=== PATIENT | female | born 1930 | race Caucasian/White ===

== ENCOUNTER 2018-09-23 01:20 | Inpatient (IN) ==
[2018-09-23] MEDS ORDERED: Ondansetron 4 MG/2 ML VIAL IVP ONE (01:40)
[2018-09-23] MEDS ORDERED: 0.9 % Sodium Chloride 500 ML IVC ONE ×2 (01:46→03:13)
--- NOTE | 2018-09-23 01:47 | Emergency Department Note ---
Disposition Clinical Impression: Calculus of kidney, Pyelonephritis, Non-ST elevation TX (NSTEMI) Abdominal pain Qualifiers: Abdominal location: right lower quadrant Qualified Code(s): R10.31 - Right lower quadrant pain Disposition: Admitted As Inpatient Condition: Fair Time of Disposition: 04:48 Abdominal Pain HPI - General Chief Complaint: ED Abdominal Pain Stated Complaint: Lower abdominal pain Time Seen by Provider: 09/23/18 01:22 Source: patient, EMS Nursing Notes Reviewed: Yes Vital Signs Reviewed: Yes - History of Present Illness HPI Narrative: Patient is an 87-year-old female presenting to [facility] ED for a recent history of right lower abdominal pain that began on Saturday. Patient states that the pain is severe in nature and has progressively been getting worse since onset. Patient states that she has a his tory of small bowel obstruction with bowel resection. Patient admits to fever/chills, headaches, shortness of breath, abdominal pain/nausea/vomiting. Patient denies chest pain, dysuria, hematuria/ hematochezia. Pain Scale: 0 - Related Data Allergies Allergy/AdvReac Type Severity Reaction Status Date / Time No Known Allergies Allergy Verified 09/23/18 02:00 Review of Systems: As Per HPI Abdominal Pain PMH - Past Medical History Medical history: Reports: renal disease Female Surgical History: Reports: other - Social History Smoking status: Unknown if ever smoked Alcohol use: Reports: none Drug use: Reports: none Physical Exam Constitutional: Patient appears ill, is tachypneic, conversationally dyspneic, actively dry heaving, appears to be somewhat confused, pale in appearance. Cardiovascular: Rhythm is irregularly irregular Respiratory: Clear to auscultation bilaterally but tachypneic, shallow depth of respirations Abdomen: Abdomen is distended, firm, tender to palpation in the right lower quadrant Extremities: Radial pulse is intact and strong - General Limitations: no limitations General appearance: alert, anxious, in distress - Head Head exam: atraumatic, normocephalic - Eye Eye exam: Present: normal appearance, EOMI, other (Left pupil is eliptical in shape, otherwise ERRL ). Absent: scleral icterus - Neck Neck exam: Present: normal inspection, trachea midline - Chest Chest inspection: Present: normal inspection, symmetric chest wall rise - Respiratory Respiratory exam: Present: normal lung sounds bilaterally - Cardiovascular Cardiovascular exam: Present: irregular rhythm. Absent: JVD - Abdominal Exam Abdominal exam: Present: soft, tenderness, distention, normal bowel sounds. Absent: guarding, rebound, rigidity Abdominal tenderness: Present: diffuse - Neurological Exam Neurological exam: Present: alert - Psychiatric Psychiatric exam: Present: normal affect, normal mood, anxious - Skin Skin exam: Present: warm, dry, intact Course Course Narrative: Sepsis workup including lactate, and CT of the abdomen and pelvis will be performed to assess for potential underlying pathology. Vital Signs Temperature 102.6 F H 09/23/18 01:24 Pulse Rate 114 09/23/18 01:24 Respiratory Rate 26 09/23/18 01:24 Blood Pressure 156/75 09/23/18 01:24 O2 Sat by Pulse Oximetry 96 09/23/18 01:24 Temperature 102.6 F H 09/23/18 01:24 Pulse Rate 126 09/23/18 04:38 Respiratory Rate 22 09/23/18 04:38 Blood Pressure 163/78 09/23/18 04:38 O2 Sat by Pulse Oximetry 97 09/23/18 04:38 Oxygen Delivery Oxygen Delivery Nasal Cannula Abdominal Pain - MDM Narrative Medical decision making narrative: Patient found to have a 6 mm obstructing stone in the right ureter, concern for pyelonephritis given her elevated white blood cell count. Patient started on fluids and given 2 g of Rocephin for antibiotic coverage for sepsis. Spoke with Dr. Arvizu from urology who recommended admission, Dr. Arvizu will follow the patient while in hospital. Patient admitted to hospitalist medicine service with Dr. Fontaine accepting admission. - Lab Data Lab results reviewed: Yes I reviewed the patient's lab results. Result diagrams: 09/23/18 01:40 09/23/18 01:40 Lab Results 09/23/18 09/23/18 09/23/18 Range/Units 01:40 01:40 01:40 WBC 17.3 H (4.3-11.1) K/mcL RBC 3.62 L (3.82-4.97) M/mcL Hgb 9.6 L (11.5-15.4) g/dL Hct 29.4 L (35.3-44.9) % MCV 81.2 L (83.0-100.0) fL MCH 26.5 L (28.0-33.3) pg MCHC 32.7 (31.6-35.5) g/dL RDW 13.4 (11.5-14.5) % Plt Count 291 (140-400) K/mcL MPV 10.5 (9.4-12.4) fL Immature Gran % 0.6 (0-4) % Seg Neutrophils % 94.3 % Lymphocytes % 2.5 % Monocytes % 2.5 % Eosinophils % 0.0 % Basophils % 0.1 % Neutrophils # 16.3 H (1.6-8.9) K/mcL Lymphocytes # 0.4 L (0.6-4.6) K/mcL Monocytes # 0.4 (0.0-1.3) K/mcL Eosinophils # 0.0 (0.0-0.6) K/mcL Basophils # 0.0 (0.0-0.2) K/mcL PT (9.4-12.1) Seconds INR Sodium 131 L (136-145) mEq/L Potassium 3.8 (3.5-5.1) mEq/L Chloride 92 L (98-107) mEq/L Carbon Dioxide 24 (23-29) mEq/L BUN 40 H (8-23) mg/dL Creatinine 2.29 H (0.60-1.20) mg/dL Est GFR ( Amer) 24 L (> 60) Est GFR (Non-Af Amer) 20 L (> 60) BUN/Creatinine Ratio 17 (6-26) Glucose 161 H (70-105) mg/dL Calculated Osmolality 285 (280-300) Lactic Acid 1.7 (0.5-2.2) mmol/L Calcium 9.0 (8.6-10.3) mg/dL Total Bilirubin 0.7 (0.3-1.0) mg/dL Direct Bilirubin 0.2 (0.0-0.2) mg/dL Indirect Bilirubin 0.5 (0.0-1.2) mg/dL AST 21 (13-39) Units/L ALT 12 (7-52) Units/L Alkaline Phosphatase 110 H (34-104) Units/L Troponin I 0.90 H* (< 0.04) ng/mL Serum Total Protein 6.6 (6.4-8.9) g/dL Albumin 3.4 L (3.5-5.7) g/dL Globulin 3.2 (2.4-3.5) g/dL Albumin/Globulin Ratio 1.1 (1.1-2.2) Lipase 7 L (11-82) Units/L Urine Color (Yellow) Urine Clarity (Clear) Urine pH (5.0-8.0) pH Units Ur Specific [place] (1.010-1.025) Urine Protein (Neg-Trace) mg/dL Urine Glucose (UA) (Normal) mg/dL Urine Ketones (Negative) mg/dL Urine Blood (Negative) Urine Nitrite (Negative) Urine Bilirubin (Negative) Urine Urobilinogen (Normal) mg/dL Ur Leukocyte Esterase (Negative) Urine Microscopic RBC (0-3) per hpf Urine Microscopic WBC (0-3) per hpf Ur Squamous Epith Cells (None-Few) per lpf Ur Renal Epithelial Cell (None-Few) per hpf Urine Bacteria (None-Few) per hpf Hyaline Casts (None-Few) per lpf Granular Casts (None Seen) per lpf Urine Mucus (Few) Urine Yeast (None Seen) per hpf Ur Culture Indicated? (NO) 09/23/18 09/23/18 Range/Units 02:11 03:21 WBC (4.3-11.1) K/mcL RBC (3.82-4.97) M/mcL Hgb (11.5-15.4) g/dL Hct (35.3-44.9) % MCV (83.0-100.0) fL MCH (28.0-33.3) pg MCHC (31.6-35.5) g/dL RDW (11.5-14.5) % Plt Count (140-400) K/mcL MPV (9.4-12.4) fL Immature Gran % (0-4) % Seg Neutrophils % % Lymphocytes % % Monocytes % % Eosinophils % % Basophils % % Neutrophils # (1.6-8.9) K/mcL Lymphocytes # (0.6-4.6) K/mcL Monocytes # (0.0-1.3) K/mcL Eosinophils # (0.0-0.6) K/mcL Basophils # (0.0-0.2) K/mcL PT 13.0 H (9.4-12.1) Seconds INR 1.2 Sodium (136-145) mEq/L Potassium (3.5-5.1) mEq/L Chloride (98-107) mEq/L Carbon Dioxide (23-29) mEq/L BUN (8-23) mg/dL Creatinine (0.60-1.20) mg/dL Est GFR ( Amer) (> 60) Est GFR (Non-Af Amer) (> 60) BUN/Creatinine Ratio (6-26) Glucose (70-105) mg/dL Calculated Osmolality (280-300) Lactic Acid (0.5-2.2) mmol/L Calcium (8.6-10.3) mg/dL Total Bilirubin (0.3-1.0) mg/dL Direct Bilirubin (0.0-0.2) mg/dL Indirect Bilirubin (0.0-1.2) mg/dL AST (13-39) Units/L ALT (7-52) Units/L Alkaline Phosphatase (34-104) Units/L Troponin I (< 0.04) ng/mL Serum Total Protein (6.4-8.9) g/dL Albumin (3.5-5.7) g/dL Globulin (2.4-3.5) g/dL Albumin/Globulin Ratio (1.1-2.2) Lipase (11-82) Units/L Urine Color Yellow (Yellow) Urine Clarity Turbid A (Clear) Urine pH 5.0 (5.0-8.0) pH Units Ur Specific [place] 1.016 (1.010-1.025) Urine Protein 100 H (Neg-Trace) mg/dL Urine Glucose (UA) Normal (Normal) mg/dL Urine Ketones Negative (Negative) mg/dL Urine Blood Large H (Negative) Urine Nitrite Positive A (Negative) Urine Bilirubin Negative (Negative) Urine Urobilinogen Normal (Normal) mg/dL Ur Leukocyte Esterase Large H (Negative) Urine Microscopic RBC 50-100 H (0-3) per hpf Urine Microscopic WBC TNTC H (0-3) per hpf Ur Squamous Epith Cells Moderate H (None-Few) per lpf Ur Renal Epithelial Cell Few (None-Few) per hpf Urine Bacteria Many H (None-Few) per hpf Hyaline Casts None Seen (None-Few) per lpf Granular Casts Few H (None Seen) per lpf Urine Mucus Moderate H (Few) Urine Yeast Present H (None Seen) per hpf Ur Culture Indicated? YES A (NO) - Radiology Data Radiology results reviewed: Yes I reviewed the patient's radiology results. Abdomen/Pelvis CT 09/23/18 01:40 IMPRESSION: 1. 6 mm stone at the right UVJ with moderate hydroureteronephrosis. 2. Right pleural effusion with dense airspace opacification in the right lower lobe. Scattered opacities otherwise noted in the lower lungs. Pattern may represent asymmetric pulmonary edema. Developing pneumonitis can not be excluded. 3. Diverticulosis with no evidence of acute diverticulitis. D/ / Abelardo Wilhelm MD / Abelardo Wilhelm MD Interpreting Provider: Abelardo Wilhelm MD Chest X-Ray 09/23/18 02:04 IMPRESSION: In this patient with probable CHF, there is suspected pulmonary edema with a small right pleural effusion. Asymmetric opacification in the right lower lung zone may represent edema or superimposed pneumonitis. D/ / Abelardo Wilhelm MD / Abelardo Wilhelm MD Interpreting Provider: Abelardo Wilhelm MD - EKG Data EKG attestation: Yes I reviewed and interpreted this EKG. EKG results narrative: Patient EKG shows a wide QRS tachycardia with a heart rate of 144 acute restor ation of 126 ms, QT/QTC duration of 279/for once before meals seconds respectively. There are no significant ST segment elevations, or depressions, no pathologic Q waves, abnormal T-wave inversions, or any other signs of acute ischemic change. This time there is no prior EKG available for comparison. Critical Care Time Critical Care Time: Yes Total Critical Care Time: 35 Attestation: Acute non-ST elevation TX, acute dehydration. Acute bacteremia with urinary tract infection. Acute renal injury Attestation Statement - Attestation Attestation: Dr Weldon note: Pt seen in conjunction w/ Resident Tavo Vargas; please see his charting for complete documentation. I spent [id number] time with the patient and agree with patient's treatment and disposition. Patient's abdominal pain couple days ago vomiting consult. Pain came back yesterday with some lower pelvic pain right flank pain. No to be febrile tachycardic. Increased creatinine versus prior presentation. Obvious urinary tract infection. No chest pain or shortness of breath troponin is noted to be elevated. Elevated hr improved in the ER ; iv fluids given; Blood thinners will be held at this time due to likely procedure for right obstructive uropathy;
[2018-09-23 01:55] LABS: Basophils % 0.1 %; Hematocrit 29.4 % (35.3-44.9); Hemoglobin 9.6 g/dL (11.5-15.4); Immature Granulocytes % 0.6 % (0-4); Lymphocytes # 0.4 K/mcL (0.6-4.6); Lymphocytes % 2.5 %; Mean Corpuscular HGB Conc 32.7 g/dL (31.6-35.5); Mean Corpuscular Hemoglobin 26.5 pg (28.0-33.3); Mean Corpuscular Volume 81.2 fL (83.0-100.0); Mean Platelet Volume 10.5 fL (9.4-12.4); Monocytes # 0.4 K/mcL (0.0-1.3); Monocytes % 2.5 %; Neutrophils # 16.3 K/mcL (1.6-8.9); Platelet Count 291 K/mcL (140-400); Red Blood Count 3.62 M/mcL (3.82-4.97); Red Cell Distribution Width 13.4 % (11.5-14.5); Segmented Neutrophils % 94.3 %
[2018-09-23 02:14] LABS: Albumin 3.4 g/dL (3.5-5.7); Albumin/Globulin Ratio 1.1 (1.1-2.2); Bilirubin,Direct 0.2 mg/dL (0.0-0.2); Bilirubin,Indirect 0.5 mg/dL (0.0-1.2); Bilirubin,Total 0.7 mg/dL (0.3-1.0); Globulin 3.2 g/dL (2.4-3.5); Potassium 3.8 mEq/L (3.5-5.1); Total Protein 6.6 g/dL (6.4-8.9)
[2018-09-23 02:33] LABS: INR 1.2
[2018-09-23 02:41] LABS: Troponin I 0.9 ng/mL (< 0.04)
[2018-09-23] MEDS ORDERED: cefTRIAXone 2,000 MG in Water for inj. (sterile) 20 ML 20 ML IVPB SCH (03:00)
[2018-09-23] MEDS ORDERED: Acetaminophen 325 MG TABLET PO ONE (03:13)
[2018-09-23] MEDS ORDERED: *HR* HYDROcodone/Acet 5/325 mg TABLET PO ONE (03:27)
[2018-09-23 03:35] LABS: Bilirubin,Urine Negative (Negative); Blood,Urine Large (Negative); Clarity,Urine Turbid (Clear); Color,Urine Yellow (Yellow); Glucose,Urine (UA) Normal (Normal); Ketones,Urine Negative (Negative); Leukocyte Esterase,Urine Large (Negative); Nitrite,Urine Positive (Negative); Protein,Urine 100 mg/dL (Neg-Trace); Specific Gravity,Urine 1.016 (1.010-1.025); Urobilinogen,Urine Normal (Normal)
[2018-09-23 03:37] LABS: Bacteria,Urine Many per hpf (None-Few); Hyaline Casts,Urine None Seen per lpf (None-Few); Squamous Epithelial Cell,Urine Moderate per lpf (None-Few); WBC,Urine TNTC per hpf (0-3)
[2018-09-23 04:05] LABS: Granular Casts,Urine Few per lpf (None Seen); Mucus,Urine Moderate (Few); RBC,Urine 50-100 per hpf (0-3); Renal Epithelial Cells,Urine Few per hpf (None-Few); Yeast,Urine Present per hpf (None Seen)
[2018-09-23] MEDS ORDERED: *HR* Metoprolol 5 MG/5 ML VIAL IVP ONE ×2 (06:37→13:03)
[2018-09-23] MEDS ORDERED: 0.9 % Sodium Chloride 1,000 ML ONE (06:39)
[2018-09-23] MEDS ORDERED: 0.9 % Sodium Chloride 1,000 ML IVC ONE ×2 (06:39→11:58)
[2018-09-23] MEDS: *HR* Metoprolol 5 MG/5 ML VIAL IVP ONE (06:55)
--- NOTE | 2018-09-23 07:19 | Event Note ---
Date of Encounter: 09/23/18 Time of Encounter: 06:35 Patient with elevated heart rate in 150's upon arrival to floor. Dr Fontaine and myself at bedside. Patient asymptomatic. EKG obtained appears sinus/SVT. Vagal maneuver unsuccessful. Patient unsure of home medications. Dr Valverde at bedside now as well. Lopressor 5mg IV ordered and 1 liter bolus. Heart rate improved to 130's but systolic blood pressure dropped from 130's systolic to 90's. Will hold off on additional dose of lopressor at this time. Patient remains asymptomatic.
[2018-09-23] MEDS ORDERED: traMADol 50 MG TABLET PO PRN (07:50)
[2018-09-23] MEDS ORDERED: Naloxone 0.4 MG/ML INJ IVP PRN (07:50)
[2018-09-23] MEDS ORDERED: *HR* Dextrose 50 % in Water (Syg) 50 ML SYRINGE IVP PRN (07:54)
[2018-09-23] MEDS ORDERED: Dextrose Gel 15 GM/37.5 ML TUBE PO PRN ×2 (07:54)
[2018-09-23] MEDS ORDERED: D5% in Water 1,000 ML IVC PRN (07:54)
[2018-09-23] MEDS ORDERED: Aspirin 325 MG TABLET PO ONE (07:56)
[2018-09-23] MEDS ORDERED: *HR* Heparin 5,000 UNIT/ML VIAL IVP PRN ×2 (08:24)
[2018-09-23] MEDS ORDERED: *HR* Heparin 5,000 UNIT/ML VIAL IVP ONE (08:24)
[2018-09-23] MEDS ORDERED: MethylPREDNISolone 40 MG/ML VIAL IVP ONE (08:25)
[2018-09-23] MEDS ORDERED: Heparin 25,000 UNIT/500 ML D5W 25,000 UNIT/500 ML BAG IVC SCH (08:30)
[2018-09-23] MEDS ORDERED: Ondansetron 4 MG/2 ML VIAL IVP PRN (08:31)
--- NOTE | 2018-09-23 08:42 | Internal Med History&Physical ---
Date of Encounter: 09/23/18 Time of Encounter: 08:30 Internal Medicine - H&P: HPI Chief complaint: Abdominal pain Plans for Post Hospital Care: Home History of present illness: Ms. Broussard is a 87 year old female no significant past medical history presented to the ED due to 4 days history of left sided abdominal pain. Patient reports that on Saturday she started having this sharp 8/10 right lower quadrant abdominal pain associated with nausea and several episodes of non-bilious, non- bloody vomiting on Saturday. She denies any aggravating or alleviating factors. Denies chest pain, but reports that since she has been in the hospital she has been having mild shortness of breath. In the ED patient found to have a 6mm kidney stone, have a UTI, plus elevated trops. Reported that patient also went in to [facility]. Hospitalist team call for management and coordination of care. Past Med Surg Social Fam HX - Past Medical History Medical history: renal disease - Past Surgical History Additional surgical history: "Dr. Brown cut my bowels off" - Social History Smoking Status: Unknown if ever smoked Smokeless Tobacco Status: No Alcohol use: none Drug use: none Internal Medicine - H&P: Meds Aspirin [Adult Aspirin] 81 mg PO DAILY 09/23/18 [History] Diltiazem CD (24hr) [Cardizem CD] 240 mg PO DAILY 09/23/18 [History] Ferrous Sulfate [Iron] 325 mg PO DAILY 09/23/18 [History] Furosemide [Lasix] 40 mg PO BID 09/23/18 [History] HYDROcodone/Acet 7.5/325 mg [[place] 7.5-325 mg] 1 tab PO TID PRN 09/23/18 [History] Metoprolol Succinate [Toprol Xl] 50 mg PO DAILY 09/23/18 [History] Omeprazole [PriLOSEC] 40 mg PO BID 09/23/18 [History] Perphenazine/Amitriptyline HCl [Perphen-Amitrip 4 mg-25 mg Tab] 1 tab PO BID 09/23/18 [History] Sertraline [Zoloft] 50 mg PO DAILY 09/23/18 [History] Allergy/AdvReac Type Severity Reaction Status Date / Time No Known Allergies Allergy Verified 09/23/18 02:00 All Systems PM: A 10-system review of systems was performed and is negative for pertinent findings except as documented above in the HPI. - Constitutional Constitutional: weakness, no anorexia, no falls - EENT Eyes: no blurry vision Nose, mouth and throat: no mouth pain - Cardiovascular Cardiovascular ROS IM: dyspnea, no chest pain, no dyspnea on exertion, no edema, no irregular heart rhythm, no lightheadedness, no orthopnea, no palpitations - Respiratory Respiratory: dyspnea, wheezing, no cough, no chest congestion, no excessive phlegm production, no change in phlegm color - Gastrointestinal Gastrointestinal: abdominal pain, nausea, vomiting, no diarrhea, no dyspepsia, no dysphagia - Musculoskeletal Musculoskeletal ROS IM: no atrophy, no back pain - Integumentary Integumentary IM: no rash - Neurological Neurological ROS: no headache(s), no lack of coordination - Psychiatric Psychiatric: no hallucinations, no hopelessness - Hematologic/Lymphatic Hematologic/Lymphatic: no lymphadenopathy - Allergic/Immunologic Allergic/Immunologic: no wheezing Additional comments: Rest of the review of system negative. - Constitutional Vitals: Temp Pulse Resp BP Pulse Ox 99.3 F 137 16 107/70 93 09/23/18 07:17 09/23/18 07:17 09/23/18 07:17 09/23/18 07:17 09/23/18 07:17 Exam: Vitals: Reviewed General: Alert and oriented x4. In mild distress due to abdominal pain Skin: Normal color, no rash, no lesions. HEENT: EOM, pupils equal, round and reactive. Cardiovascular: Tachycardic, normal S1 & S2, no rubs, murmurs or gallops. Lungs: scattered b/l expiratory wheezing, no crackles. Abdomen: Soft, no rigidity, mild tenderness to palpation in the right flank Extremities: No deformity, no edema or tenderness, no joint swelling or clubbing. Neurological: Normal cognition and motor skills. Rest of the physical exam is non contributory Internal Med - H&P Results - Labs CBC & Chem 7: 09/23/18 08:27 09/23/18 01:40 Labs: Short CBC 09/23/18 Range/Units 01:40 WBC 17.3 H (4.3-11.1) K/mcL Hgb 9.6 L (11.5-15.4) g/dL Hct 29.4 L (35.3-44.9) % Plt Count 291 (140-400) K/mcL Neutrophils # 16.3 H (1.6-8.9) K/mcL BMP 09/23/18 01:40 Sodium 131 L Potassium 3.8 Chloride 92 L Carbon Dioxide 24 BUN 40 H Creatinine 2.29 H Glucose 161 H Calcium 9.0 Cardiac Enzymes 09/23/18 Range/Units 01:40 Troponin I 0.90 H* (< 0.04) ng/mL Liver Function 09/23/18 Range/Units 01:40 Total Bilirubin 0.7 (0.3-1.0) mg/dL Direct Bilirubin 0.2 (0.0-0.2) mg/dL AST 21 (13-39) Units/L ALT 12 (7-52) Units/L Alkaline Phosphatase 110 H (34-104) Units/L Albumin 3.4 L (3.5-5.7) g/dL Urine 09/23/18 Range/Units 03:21 Urine Color Yellow (Yellow) Urine Clarity Turbid A (Clear) Urine pH 5.0 (5.0-8.0) pH Units Ur Specific [place] 1.016 (1.010-1.025) Urine Protein 100 H (Neg-Trace) mg/dL Urine Glucose (UA) Normal (Normal) mg/dL - Impressions ITS Impressions Abdomen/Pelvis CT 09/23/18 01:40 IMPRESSION: 1. 6 mm stone at the right UVJ with moderate hydroureteronephrosis. 2. Right pleural effusion with dense airspace opacification in the right lower lobe. Scattered opacities otherwise noted in the lower lungs. Pattern may represent asymmetric pulmonary edema. Developing pneumonitis can not be excluded. 3. Diverticulosis with no evidence of acute diverticulitis. D/ / Abelardo Wilhelm MD / Abelardo Wilhelm MD Interpreting Provider: Abelardo Wilhelm MD Chest X-Ray 09/23/18 02:04 IMPRESSION: In this patient with probable CHF, there is suspected pulmonary edema with a small right pleural effusion. Asymmetric opacification in the right lower lung zone may represent edema or superimposed pneumonitis. D/ / Abelardo Wilhelm MD / Abelardo Wilhelm MD Interpreting Provider: Abelardo Wilhelm MD - Diagnostic Studies CT scan - abdomen Status: image reviewed by me (kidney stone at the UVJ. ) - Assessment and plan (1) UTI (urinary tract infection) Current Visit: Yes Status: Acute Assessment and plan: Plan started on ceftriaxone 2gm/IV daily blood and urine culture ordered. Started on IV hydration. Qualifiers: Urinary tract infection type: site unspecified Hematuria presence: without hematuria Qualified Code(s): N39.0 - Urinary tract infection, site not specified (2) Sepsis Current Visit: Yes Status: Acute Assessment and plan: Plan of care as above. Qualifiers: Sepsis type: sepsis due to unspecified organism Qualified Code(s): A41.9 - Sepsis, unspecified organism (3) Calculus of kidney Current Visit: Yes Status: Acute Assessment and plan: 6 mm stone at the right UVJ with moderate hydroureteronephrosis. most likely culprit for UTI. Plan urology has been consulted, recommendations appreciated tramadol for pain control (4) Acute kidney injury Current Visit: Yes Status: Acute Assessment and plan: possible due to obstructive uropathy from renal calculi vs low prelow in the setting of UTI. Plan Patient started on Gentle IV hydration with D5NS@75mls/hr avoid nephrotoxic medications uric acid, and cpk order if not improvement with IV fluids and removal of the stone consider consulting nephrology (5) Elevated troponin Current Visit: Yes Status: Acute Assessment and plan: Possible due to demand ischemia due to a.flutter cannot r/o acs Plan telemetry monitoring serial trops started on a heparin drip cardiology has been consulted, recommendations appreciated aspirin 325mg/PO x1 Consider TTE for wall motion and valvular abnormality evaluation after HR is controlled. NPO, accu-checks Q6HRs plus lispro low dose sliding scale. (6) Pleural effusion Current Visit: Yes Status: Acute Assessment and plan: unclear etiology, patient euvolemic. cannot r/o CAP as a possible cause. patient started empirically on Ceftriaxone 2gm/IV daily. (7) DVT prophylaxis Current Visit: Yes Status: Acute Assessment and plan: Patient on a Hep drip due to elevated trops. (8) Shortness of breath Current Visit: Yes Status: Acute Assessment and plan: possible due to A.flutter. b/l scattered expiratory wheezing on auscultation. Plan: bronchodilators Nebs prn Solumedrol 40mg/IV x1. (9) PSVT (paroxysmal supraventricular tachycardia) Current Visit: Yes Status: Acute Assessment and plan: patient denies chest pain, reports shortness of breath. HR persistent in the 140s, after receiving 5mg of lopressor Plan: started on a cardizem drip cardiology consulted - Time Spent With Patient Total time spent is greater than 50% in coordination of care (as documented) at patient's floor/unit and/or counseling patient: Greater than 35 minutes (55)
[2018-09-23 08:57] LABS: Hematocrit 25.8 % (35.3-44.9); Hemoglobin 8.3 g/dL (11.5-15.4); Mean Corpuscular HGB Conc 32.2 g/dL (31.6-35.5); Mean Corpuscular Hemoglobin 26.2 pg (28.0-33.3); Mean Corpuscular Volume 81.4 fL (83.0-100.0); Mean Platelet Volume 11.2 fL (9.4-12.4); Platelet Count 247 K/mcL (140-400); Red Blood Count 3.17 M/mcL (3.82-4.97); Red Cell Distribution Width 13.4 % (11.5-14.5)
[2018-09-23] MEDS ORDERED: Pantoprazole 40 MG VIAL IVP SCH (09:00)
[2018-09-23 09:04] LABS: INR 1.1; Prothrombin Time 12.5 Seconds (9.4-12.1)
[2018-09-23 09:15] LABS: Magnesium 1.6 mg/dL (1.6-2.6); Phosphorous 3.9 mg/dL (2.7-4.5)
[2018-09-23 09:17] LABS: Troponin I 0.99 ng/mL (< 0.04)
[2018-09-23] MEDS: D5% in 0.9% NACL 1,000 ML IVC SCH (09:18)
--- NOTE | 2018-09-23 09:50 | Urology - Consult Note ---
Addendum entered and electronically signed by RUPAL Hahn 09/23/18 10:51: Discussed assessment and plan with hospitalist physician. Patient is awaiting cardiology evaluation. We will plan to proceed with surgery contingent upon cardiology evaluation and surgical clearance. Original Note: <Sary Beaver - Last Filed: 09/23/18 10:03> Date of Encounter: 09/23/18 Time of Encounter: 09:47 - Assessment and Plan (1) Right ureteral stone Current Visit: Yes Status: Acute Assessment and plan: Patient is an 87-year-old female who presents with a right 6 mm UVJ stone and moderate hydronephrosis. Vital signs are currently stable and afebrile. White blood cell count is elevated to 21.3. Creatinine is also elevated from baseline to 2.29. Discussed urinary diversion by ureteral stent placement with patient and family members at bedside. Discussed surgical risks and benefits of bleeding, infection, scarring, stricture, damage to kidney or bladder, anesthesia risks, blood clots, possible need for nephrostomy tube, potential need for multiple procedures to definitively extract stone. Patient verbalized understanding, consent has been signed, and she is prepared undergo a cystoscopy and right ureteral stent placement with Dr. Arvizu later this afternoon. Patient will remain nothing by mouth. Patient is receiving IV Rocephin. (2) UTI (urinary tract infection) Current Visit: Yes Status: Acute Assessment and plan: Patient is an 87-year-old female who presents with a right distal ureteral stone as well as a urinary tract infection. On presentation, patient sustained a temperature of 102.6. Currently, vital signs are stable and afebrile. Patient is tachycardic with heart rate in the 130s; however, patient is also being evaluated for atrial flutter. White blood cell count is markedly elevated at 21.3. Urine culture has been collected and is pending. Patient is receiving IV Rocephin. Qualifiers: Urinary tract infection type: site unspecified Hematuria presence: without hematuria Qualified Code(s): N39.0 - Urinary tract infection, site not specified Urology CN:HPI Consult date: 09/23/18 Reason for consult Urology: Other (right ureteral stone; UTI) History of present illness: Patient is an 87-year-old female who presents with a distal right ureteral stone as well as a urinary tract infection. Patient presented to the emergency department with complaints of a 2 day history of right lower quadrant pain accompanied with nausea and vomiting. On initial examination, patient was found to have a temperature of 102.6 as well as a nitrite positive urinalysis. Gayatri turcios underwent CT scan of abdomen and pelvis revealing a right, 6 mm UVJ stone with moderate hydronephrosis. Currently, patient is resting comfortably sitting upright in bed and denies any fever, chills, flank pain, gross hematuria, dysuria, incontinence, frequency, urgency, hesitancy. Patient denies any known past history of renal stones. Patient denies any known family history of renal stones or other malignancy. Patient admits to infrequent urinary tract infections, but otherwise has no significant past urologic history. Past Med Surg Social Fam HX - Past Medical History Medical history: renal disease - Past Surgical History Additional surgical history: "Dr. Brown cut my bowels off" - Social History Smoking Status: Unknown if ever smoked Smokeless Tobacco Status: No Alcohol use: none Drug use: none Medications and Allergies Aspirin [Adult Aspirin] 81 mg PO DAILY 09/23/18 [History] Diltiazem CD (24hr) [Cardizem CD] 240 mg PO DAILY 09/23/18 [History] Ferrous Sulfate [Iron] 325 mg PO DAILY 09/23/18 [History] Furosemide [Lasix] 40 mg PO BID 09/23/18 [History] HYDROcodone/Acet 7.5/325 mg [[place] 7.5-325 mg] 1 tab PO TID PRN 09/23/18 [History] Metoprolol Succinate [Toprol Xl] 50 mg PO DAILY 09/23/18 [History] Omeprazole [PriLOSEC] 40 mg PO BID 09/23/18 [History] Perphenazine/Amitriptyline HCl [Perphen-Amitrip 4 mg-25 mg Tab] 1 tab PO BID 09/23/18 [History] Sertraline [Zoloft] 50 mg PO DAILY 09/23/18 [History] Allergy/AdvReac Type Severity Reaction Status Date / Time No Known Allergies Allergy Verified 09/23/18 02:00 Review of Systems - Constitutional chills, fever(s), no fatigue - EENT Nose, mouth and throat: no dizziness, no headache(s) - Cardiovascular no chest pain, no diaphoresis, no dyspnea - Respiratory no cough, no dyspnea - Gastrointestinal nausea, vomiting, no abdominal pain, no change in bowel habits - Genitourinary Genitourinary: flank pain, no difficulty urinating, no dysuria, no hematuria, no urinary frequency, no urinary hesitancy, no urinary incontinence, no urinary urgency - Musculoskeletal no back pain, no muscle weakness - Integumentary no erythema, no rash - Neurological no confusion, no syncope - Psychiatric no anxiety, no confusion - Hematologic/Lymphatic no easy bleeding, no easy bruising - Allergic/Immunologic no throat swelling, no wheezing Exam Initial Vital Signs Temp Pulse Resp BP Pulse Ox 102.6 F H 114 26 156/75 96 09/23/18 01:24 09/23/18 01:24 09/23/18 01:24 09/23/18 01:24 09/23/18 01:24 - General physical appearance Present: no distress, no pain - Eyes Present: PERRL, normal ocular movement - ENT Present: normal nares, no congestion - Neck Present: no masses, trachea midline - Abdomen Abdomen: Present: soft, non tender - Integumentary Present: no rash, no abnormal pigmentation - Neurologic Present: normal coordination Urology Results - Labs 09/23/18 08:27 09/23/18 01:40 Abnormal lab results WBC 21.3 K/mcL (4.3-11.1) H 09/23/18 08:27 RBC 3.17 M/mcL (3.82-4.97) L 09/23/18 08:27 Hgb 8.3 g/dL (11.5-15.4) L 09/23/18 08:27 Hct 25.8 % (35.3-44.9) L 09/23/18 08:27 MCV 81.4 fL (83.0-100.0) L 09/23/18 08:27 MCH 26.2 pg (28.0-33.3) L 09/23/18 08:27 Neutrophils # 16.3 K/mcL (1.6-8.9) H 09/23/18 01:40 Lymphocytes # 0.4 K/mcL (0.6-4.6) L 09/23/18 01:40 PT 12.5 Seconds (9.4-12.1) H 09/23/18 08:27 Heparin Anti-Xa, Unfract 0.00 IU/mL (0.30-0.70) L 09/23/18 08:27 Sodium 131 mEq/L (136-145) L 09/23/18 01:40 Chloride 92 mEq/L (98-107) L 09/23/18 01:40 BUN 40 mg/dL (8-23) H 09/23/18 01:40 Creatinine 2.29 mg/dL (0.60-1.20) H 09/23/18 01:40 Est GFR ( Amer) 24 (> 60) L 09/23/18 01:40 Est GFR (Non-Af Amer) 20 (> 60) L 09/23/18 01:40 Glucose 161 mg/dL (70-105) H 09/23/18 01:40 Alkaline Phosphatase 110 Units/L (34-104) H 09/23/18 01:40 Troponin I 0.99 ng/mL (< 0.04) H* 09/23/18 08:27 Albumin 3.4 g/dL (3.5-5.7) L 09/23/18 01:40 Lipase 7 Units/L (11-82) L 09/23/18 01:40 Urine Clarity Turbid (Clear) A 09/23/18 03:21 Urine Protein 100 mg/dL (Neg-Trace) H 09/23/18 03:21 Urine Blood Large (Negative) H 09/23/18 03:21 Urine Nitrite Positive (Negative) A 09/23/18 03:21 Ur Leukocyte Esterase Large (Negative) H 09/23/18 03:21 Urine Microscopic RBC 50-100 per hpf (0-3) H 09/23/18 03:21 Urine Microscopic WBC TNTC per hpf (0-3) H 09/23/18 03:21 Ur Squamous Epith Cells Moderate per lpf (None-Few) H 09/23/18 03:21 Urine Bacteria Many per hpf (None-Few) H 09/23/18 03:21 Granular Casts Few per lpf (None Seen) H 09/23/18 03:21 Urine Mucus Moderate (Few) H 09/23/18 03:21 Urine Yeast Present per hpf (None Seen) H 09/23/18 03:21 Ur Culture Indicated? YES (NO) A 09/23/18 03:21 Diabetes panel 09/23/18 Range/Units 01:40 Sodium 131 L (136-145) mEq/L Potassium 3.8 (3.5-5.1) mEq/L Chloride 92 L (98-107) mEq/L Carbon Dioxide 24 (23-29) mEq/L BUN 40 H (8-23) mg/dL Creatinine 2.29 H (0.60-1.20) mg/dL Glucose 161 H (70-105) mg/dL Calcium 9.0 (8.6-10.3) mg/dL AST 21 (13-39) Units/L ALT 12 (7-52) Units/L Alkaline Phosphatase 110 H (34-104) Units/L Albumin 3.4 L (3.5-5.7) g/dL Calcium panel 09/23/18 09/23/18 Range/Units 01:40 08:27 Calcium 9.0 (8.6-10.3) mg/dL Phosphorus 3.9 (2.7-4.5) mg/dL Albumin 3.4 L (3.5-5.7) g/dL Pituitary panel 09/23/18 Range/Units 01:40 Sodium 131 L (136-145) mEq/L Potassium 3.8 (3.5-5.1) mEq/L Chloride 92 L (98-107) mEq/L Carbon Dioxide 24 (23-29) mEq/L BUN 40 H (8-23) mg/dL Creatinine 2.29 H (0.60-1.20) mg/dL Glucose 161 H (70-105) mg/dL Calcium 9.0 (8.6-10.3) mg/dL Adrenal panel 09/23/18 Range/Units 01:40 Sodium 131 L (136-145) mEq/L Potassium 3.8 (3.5-5.1) mEq/L Chloride 92 L (98-107) mEq/L Carbon Dioxide 24 (23-29) mEq/L BUN 40 H (8-23) mg/dL Creatinine 2.29 H (0.60-1.20) mg/dL Glucose 161 H (70-105) mg/dL Calcium 9.0 (8.6-10.3) mg/dL Total Bilirubin 0.7 (0.3-1.0) mg/dL AST 21 (13-39) Units/L ALT 12 (7-52) Units/L Alkaline Phosphatase 110 H (34-104) Units/L Albumin 3.4 L (3.5-5.7) g/dL All other labs normal. - Imaging CT scan - abdomen: report reviewed, image reviewed CT scan - pelvis: report reviewed, image reviewed Consult Discharge Plan - Plan Referrals: Moreno Zhang DO [Primary Care Provider] - <Orlin Arvizuin W - Last Filed: 09/23/18 23:18> Date of Encounter: 09/23/18 - Assessment and Plan (1) Right ureteral stone Current Visit: Yes Status: Acute Assessment and plan: Patient seen and examined independently. History, review of systems and physical exam findings of PA verified. All pertinent imaging reviewed. I am in agreement with the assessment and plan as outlined by our Urologic Surgery Department Physician Sales Account Associate[place]. Exam Initial Vital Signs Temp Pulse Resp BP Pulse Ox 102.6 F H 114 26 156/75 96 09/23/18 01:24 09/23/18 01:24 09/23/18 01:24 09/23/18 01:24 09/23/18 01:24 Urology Results - Labs 09/23/18 08:27 09/23/18 01:40 Abnormal lab results WBC 21.3 K/mcL (4.3-11.1) H 09/23/18 08:27 RBC 3.17 M/mcL (3.82-4.97) L 09/23/18 08:27 Hgb 8.3 g/dL (11.5-15.4) L 09/23/18 08:27 Hct 25.8 % (35.3-44.9) L 09/23/18 08:27 MCV 81.4 fL (83.0-100.0) L 09/23/18 08:27 MCH 26.2 pg (28.0-33.3) L 09/23/18 08:27 Neutrophils # 16.3 K/mcL (1.6-8.9) H 09/23/18 01:40 Lymphocytes # 0.4 K/mcL (0.6-4.6) L 09/23/18 01:40 PT 12.5 Seconds (9.4-12.1) H 09/23/18 08:27 Heparin Anti-Xa, Unfract 0.00 IU/mL (0.30-0.70) L 09/23/18 08:27 Sodium 131 mEq/L (136-145) L 09/23/18 01:40 Chloride 92 mEq/L (98-107) L 09/23/18 01:40 BUN 40 mg/dL (8-23) H 09/23/18 01:40 Creatinine 2.29 mg/dL (0.60-1.20) H 09/23/18 01:40 Est GFR ( Amer) 24 (> 60) L 09/23/18 01:40 Est GFR (Non-Af Amer) 20 (> 60) L 09/23/18 01:40 Glucose 161 mg/dL (70-105) H 09/23/18 01:40 Alkaline Phosphatase 110 Units/L (34-104) H 09/23/18 01:40 Troponin I 1.63 ng/mL (< 0.04) H* 09/23/18 20:55 Albumin 3.4 g/dL (3.5-5.7) L 09/23/18 01:40 Lipase 7 Units/L (11-82) L 09/23/18 01:40 Urine Clarity Turbid (Clear) A 09/23/18 03:21 Urine Protein 100 mg/dL (Neg-Trace) H 09/23/18 03:21 Urine Blood Large (Negative) H 09/23/18 03:21 Urine Nitrite Positive (Negative) A 09/23/18 03:21 Ur Leukocyte Esterase Large (Negative) H 09/23/18 03:21 Urine Microscopic RBC 50-100 per hpf (0-3) H 09/23/18 03:21 Urine Microscopic WBC TNTC per hpf (0-3) H 09/23/18 03:21 Ur Squamous Epith Cells Moderate per lpf (None-Few) H 09/23/18 03:21 Urine Bacteria Many per hpf (None-Few) H 09/23/18 03:21 Granular Casts Few per lpf (None Seen) H 09/23/18 03:21 Urine Mucus Moderate (Few) H 09/23/18 03:21 Urine Yeast Present per hpf (None Seen) H 09/23/18 03:21 Ur Culture Indicated? YES (NO) A 09/23/18 03:21 Enterobacteriac sp PCR DETECTED (Not Detect) A 09/23/18 01:40 E. coli (PCR) DETECTED (Not Detect) A 09/23/18 01:40 Diabetes panel 09/23/18 Range/Units 01:40 Sodium 131 L (136-145) mEq/L Potassium 3.8 (3.5-5.1) mEq/L Chloride 92 L (98-107) mEq/L Carbon Dioxide 24 (23-29) mEq/L BUN 40 H (8-23) mg/dL Creatinine 2.29 H (0.60-1.20) mg/dL Glucose 161 H (70-105) mg/dL Calcium 9.0 (8.6-10.3) mg/dL AST 21 (13-39) Units/L ALT 12 (7-52) Units/L Alkaline Phosphatase 110 H (34-104) Units/L Albumin 3.4 L (3.5-5.7) g/dL Calcium panel 09/23/18 09/23/18 Range/Units 01:40 08:27 Calcium 9.0 (8.6-10.3) mg/dL Phosphorus 3.9 (2.7-4.5) mg/dL Albumin 3.4 L (3.5-5.7) g/dL Pituitary panel 09/23/18 Range/Units 01:40 Sodium 131 L (136-145) mEq/L Potassium 3.8 (3.5-5.1) mEq/L Chloride 92 L (98-107) mEq/L Carbon Dioxide 24 (23-29) mEq/L BUN 40 H (8-23) mg/dL Creatinine 2.29 H (0.60-1.20) mg/dL Glucose 161 H (70-105) mg/dL Calcium 9.0 (8.6-10.3) mg/dL Adrenal panel 09/23/18 Range/Units 01:40 Sodium 131 L (136-145) mEq/L Potassium 3.8 (3.5-5.1) mEq/L Chloride 92 L (98-107) mEq/L Carbon Dioxide 24 (23-29) mEq/L BUN 40 H (8-23) mg/dL Creatinine 2.29 H (0.60-1.20) mg/dL Glucose 161 H (70-105) mg/dL Calcium 9.0 (8.6-10.3) mg/dL Total Bilirubin 0.7 (0.3-1.0) mg/dL AST 21 (13-39) Units/L ALT 12 (7-52) Units/L Alkaline Phosphatase 110 H (34-104) Units/L Albumin 3.4 L (3.5-5.7) g/dL All other labs normal.
[2018-09-23] MEDS ORDERED: Levalbuterol 1 PUFF INHALER IH SCH (10:00)
[2018-09-23] MEDS: Levalbuterol Neb 0.63 MG/3 ML IH SCH ×2 (10:39→22:58)
[2018-09-23] MEDS ORDERED: 0.9 % Sodium Chloride 1,000 ML IV ONE (11:55)
[2018-09-23] MEDS: Insulin LISPRO 300 UNITS/3 ML VIAL SQ SCH ×2 (12:20→18:03)
--- NOTE | 2018-09-23 12:45 | Electrocardiograph Report ---
[address] [place], [place] [address] Test Date: 2018-09-23 Pat Name: Jessi Broussard Department: 112 Room: 2A26 Gender: F Program Facilitator: : [id number] Requested By: Elvis Fontaine Order Number: [id number] Reading MD: Romero Lombardo Measurements Intervals [place] Rate: 154 P: NE: 0 QRS: 5 QRSD: 88 T: -22 QT: 273 QTc: 360 Interpretive Statements SUPRAVENTRICULAR TACHYCARDIA INFERIOR MYOCARDIAL INFARCTION, OF INDETERMINATE AGE Electronically Signed On 09-23-2018 12:44:23 EST by Romero Lombardo
--- NOTE | 2018-09-23 13:08 | Cardiology Consult Note ---
Date of Encounter: 09/23/18 Time of Encounter: 13:05 Assessment and Plan (1) PSVT (paroxysmal supraventricular tachycardia) Current Visit: Yes Status: Acute PSVT in the setting of UTI, kidney stone, and dehydration. Suspect arrhythmia will improve as pain is treated, kidney stone is removed, UTIs treated, and given adequate hydration. 1L Fluid bolus given. Despite increasing Cardizem drip (bolus 10 mg and increase to 15 mg/hr), PSVT continues. She is also on PO Coreg. Nurse instructed to bolus 10 mg and increased to 15 mg per hour. Given persistent nature of SVT, will have EP see her. (2) Elevated troponin Current Visit: Yes Status: Acute Elevated troponin in the setting of PSVT. Troponin elevation is flat and adynamic. Suspect related to tachycardia. No significant ST or T-wave changes. No chest pain reported. Presentation is not consistent with ACS. Given a nemia, will stop heparin drip. Check TTE. Discussion w patient/family: The assessment and plan as outlined above was discussed with the patient and/or family members who expressed understanding and agreement. All questions were answered. Thank you for involving us in the care of your patient. Please call with any questions. History of Present Illness Consult date: 09/23/18 Requesting physician: Elvis Fontaine Consult reason: Tachycardia Chief complaint: Left sided abdominal pain History of present illness: Ms. Broussard is a 87 year old female who presented with at least 4 days of left- sided abdominal pain. Patient admits to generally not drinking much fluid, but has had even less fluid in the past several days. Since admission, she has been diagnosed with a kidney stone with associated UTI. Overnight, PSVT noted. She is on Coreg and was started on a Cardizem IV drip. She has no known history of prior cardiac issues. Denies previous LHC. Describes a remote stress test. She denies chest pain or disocmfort. States abominal pain is better. Flat troponin elevation noted. Anemia also noted. Past Med Surg Social Fam HX - Past Medical History Medical history: renal disease - Past Surgical History Additional surgical history: "Dr. Brown cut my bowels off" - Social History Smoking Status: Unknown if ever smoked Smokeless Tobacco Status: No Alcohol use: none Drug use: none Medications and Allergies Aspirin [Adult Aspirin] 81 mg PO DAILY 09/23/18 [History] Diltiazem CD (24hr) [Cardizem CD] 240 mg PO DAILY 09/23/18 [History] Ferrous Sulfate [Iron] 325 mg PO DAILY 09/23/18 [History] Furosemide [Lasix] 40 mg PO BID 09/23/18 [History] HYDROcodone/Acet 7.5/325 mg [[place] 7.5-325 mg] 1 tab PO TID PRN 09/23/18 [History] Metoprolol Succinate [Toprol Xl] 50 mg PO DAILY 09/23/18 [History] Omeprazole [PriLOSEC] 40 mg PO BID 09/23/18 [History] Perphenazine/Amitriptyline HCl [Perphen-Amitrip 4 mg-25 mg Tab] 1 tab PO BID 09/23/18 [History] Sertraline [Zoloft] 50 mg PO DAILY 09/23/18 [History] Allergy/AdvReac Type Severity Reaction Status Date / Time No Known Allergies Allergy Verified 09/23/18 02:00 All Systems Review: The remainder of the systems were reviewed and are negative - Cardiovascular Cardiovascular: as per HPI - Gastrointestinal Gastrointestinal: abdominal pain, nausea Physical Examination Vital Signs, Last 4 Hours Temp Pulse Resp BP Pulse Ox 09/23/18 11:27 97.7 F 146 16 125/83 95 09/23/18 10:39 18 96 09/23/18 09:15 94 General: Conversant, No Apparent Distress HEENT: Atraumatic, Normocephaly, Mucus Membranes Moist Neck: No JVD Cardiac: Reg Rate and Rhythm, Other (Tachycardic, difficult to appreciate murmurs.) Lungs: Normal Breath Sounds, No Wheeze, Rales, Rhonchi Neuro: Alert and responsive, No focal deficits noted Abdomen: Soft, Non-Tender Skin: No rashes noted on visualized skin Musculoskeletal: No Chest Wall Tenderness Extremities: No Clubbing, No Cyanosis, No Edema Results 09/23/18 08:27 09/23/18 01:40 Lab Results 09/23/18 09/23/18 09/23/18 01:40 01:40 02:11 WBC 17.3 H Hgb 9.6 L Hct 29.4 L Plt Count 291 INR 1.2 Sodium 131 L Potassium 3.8 Chloride 92 L Carbon Dioxide 24 BUN 40 H Creatinine 2.29 H Glucose 161 H Calcium 9.0 Magnesium Total Bilirubin 0.7 AST 21 ALT 12 Alkaline Phosphatase 110 H Troponin I 0.90 H* Lipase 7 L 09/23/18 09/23/18 09/23/18 08:27 08:27 08:27 WBC 21.3 H Hgb 8.3 L Hct 25.8 L Plt Count 247 INR 1.1 Sodium Potassium Chloride Carbon Dioxide BUN Creatinine Glucose Calcium Magnesium 1.6 Total Bilirubin AST ALT Alkaline Phosphatase Troponin I 0.99 H* Lipase - Imaging and Cardiology Chest Xray: report reviewed Echo: pending - EKG Interpretation EKG results cardiology: personally reviewed Consult Discharge Plan - Plan Referrals: Moreno Zhang DO [Primary Care Provider] -
--- NOTE | 2018-09-23 14:01 | Electrophysiology Consult Note ---
<Hiram Fontaine R - Last Filed: 09/23/18 14:39> Date of Encounter: 09/23/18 Time of Encounter: 14:00 Assessment and Plan (1) AVNRT (AV gerson re-entry tachycardia) Current Visit: Yes Status: Acute Per EP: Currently on Cardizem drip at 10mg per hour and Coreg 6.25 mg by mouth twice a day. Has received IV fluids as well. ECG obtained now shows sinus rhythm in the 80s. ECGs and rhythm strips reviewed and discussed with chuckie Odonnell ce of AVNRT noted. We will attempt by mouth Cardizem and wean off IV Cardizem drip. We will set up outpatient EP follow-up for further evaluation if ablation would be warranted if continues to recur. Echo pending. Continue to monitor telemetry. Discussion w patient/family: The assessment and plan as outlined above was discussed with the patient and/or family members who expressed understanding and agreement. All questions were answered. Thank you for involving us in the care of your patient. Please call with any questions. History of Present Illness Consult date: 09/23/18 Requesting physician: Kolby Bauer Consult reason: SVT Chief complaint: Abdominal Pain History of present illness: Ms. Broussard is a 87 year old female with relevant past medical history of hypertension, bowel resection, chronic pain. Electrophysiology consult for recurrent SVT in setting of acute kidney stone with UTI. Patient seen this afternoon resting quietly sleeping. She currently denies any chest pain, short of breath, palpitations. Reports adequate left abdominal pain control. She denies any active bleeding or blood loss. Denies any dizziness, syncope, falls. Denies any recent infectious process. Denies any past history of atrial fibrillation. Past Med Surg Social Fam HX - Past Medical History Attestation: Yes The following information was validated with the patient. Source: patient, old records reviewed Medical history: renal disease - Past Surgical History Additional surgical history: "Dr. Brown cut my bowels off" - Social History Smoking Status: Unknown if ever smoked Smokeless Tobacco Status: No Alcohol use: none Drug use: none Medications and Allergies Aspirin [Adult Aspirin] 81 mg PO DAILY 09/23/18 [History] Diltiazem CD (24hr) [Cardizem CD] 240 mg PO DAILY 09/23/18 [History] Ferrous Sulfate [Iron] 325 mg PO DAILY 09/23/18 [History] Furosemide [Lasix] 40 mg PO BID 09/23/18 [History] HYDROcodone/Acet 7.5/325 mg [[place] 7.5-325 mg] 1 tab PO TID PRN 09/23/18 [History] Metoprolol Succinate [Toprol Xl] 50 mg PO DAILY 09/23/18 [History] Omeprazole [PriLOSEC] 40 mg PO BID 09/23/18 [History] Perphenazine/Amitriptyline HCl [Perphen-Amitrip 4 mg-25 mg Tab] 1 tab PO BID 09/23/18 [History] Sertraline [Zoloft] 50 mg PO DAILY 09/23/18 [History] Allergy/AdvReac Type Severity Reaction Status Date / Time No Known Allergies Allergy Verified 09/23/18 02:00 All Systems Review: The remainder of the systems were reviewed and are negative - Cardiovascular Cardiovascular: as per HPI - Gastrointestinal Gastrointestinal: abdominal pain Physical Examination Vital Signs, Last 4 Hours Temp Pulse Resp BP Pulse Ox 09/23/18 11:27 97.7 F 146 16 125/83 95 09/23/18 10:39 18 96 General: Conversant, No Apparent Distress HEENT: Atraumatic, Normocephaly, Mucus Membranes Moist Neck: No JVD, Normal carotid pulses Cardiac: Reg Rate and Rhythm, Normal S1 and S2, No Murmur Lungs: Normal Breath Sounds, No Wheeze, Rales, Rhonchi Neuro: Alert and responsive, No focal deficits noted Abdomen: Soft, Non-Tender Skin: No rashes noted on visualized skin Musculoskeletal: No Chest Wall Tenderness Extremities: No Clubbing, No Cyanosis, No Edema, Normal Pulses Results 09/23/18 08:27 09/23/18 01:40 Lab Results 09/23/18 09/23/18 09/23/18 01:40 01:40 02:11 WBC 17.3 H Hgb 9.6 L Hct 29.4 L Plt Count 291 INR 1.2 Sodium 131 L Potassium 3.8 Chloride 92 L Carbon Dioxide 24 BUN 40 H Creatinine 2.29 H Glucose 161 H Calcium 9.0 Magnesium Total Bilirubin 0.7 AST 21 ALT 12 Alkaline Phosphatase 110 H Troponin I 0.90 H* Lipase 7 L 09/23/18 09/23/18 09/23/18 08:27 08:27 08:27 WBC 21.3 H Hgb 8.3 L Hct 25.8 L Plt Count 247 INR 1.1 Sodium Potassium Chloride Carbon Dioxide BUN Creatinine Glucose Calcium Magnesium 1.6 Total Bilirubin AST ALT Alkaline Phosphatase Troponin I 0.99 H* Lipase - Imaging and Cardiology Echo: pending - EKG Interpretation EKG results cardiology: personally reviewed (Reviewed with Dr. Juanito Blunt, current ECG shows sinus rhythm) Consult Discharge Plan - Plan Referrals: Moreno Zhang DO [Primary Care Provider] - <Juanito Blunt - Last Filed: 09/23/18 14:53> Date of Encounter: 09/23/18 - Attending Attestation I have personally performed a face to face evaluation on this patient. I have reviewed and agree with the care plan. History and Exam by me shows: I have personally performed a face to face evaluation on this patient. I have re viewed and agree with the care plan. History and Exam by me shows: SVT, recommend aggressive medical therapy. Could consider ablation down the road if has recurrent symptoms. Assessment and Plan Discussion w patient/family: The assessment and plan as outlined above was discussed with the patient and/or family members who expressed understanding and agreement. All questions were answered. Thank you for involving us in the care of your patient. Please call with any questions. History of Present Illness History of present illness: Ms. Broussard is a 87 year old female All Systems Review: The remainder of the systems were reviewed and are negative Physical Examination Vital Signs, Last 4 Hours Temp Pulse Resp BP Pulse Ox 09/23/18 11:27 97.7 F 146 16 125/83 95 Results 09/23/18 08:27 09/23/18 01:40 Lab Results 09/23/18 09/23/18 09/23/18 01:40 01:40 02:11 WBC 17.3 H Hgb 9.6 L Hct 29.4 L Plt Count 291 INR 1.2 Sodium 131 L Potassium 3.8 Chloride 92 L Carbon Dioxide 24 BUN 40 H Creatinine 2.29 H Glucose 161 H Calcium 9.0 Magnesium Total Bilirubin 0.7 AST 21 ALT 12 Alkaline Phosphatase 110 H Troponin I 0.90 H* Lipase 7 L 09/23/18 09/23/18 09/23/18 08:27 08:27 08:27 WBC 21.3 H Hgb 8.3 L Hct 25.8 L Plt Count 247 INR 1.1 Sodium Potassium Chloride Carbon Dioxide BUN Creatinine Glucose Calcium Magnesium 1.6 Total Bilirubin AST ALT Alkaline Phosphatase Troponin I 0.99 H* Lipase
[2018-09-23 14:27] LABS: Acinetobacter baumannii by PCR Not Detected (Not Detect); Enterococcus by PCR Not Detected (Not Detect); Staphylococcus aureus by PCR Not Detected (Not Detect); Staphylococcus by PCR Not Detected (Not Detect); Streptococcus agalactiae(B)PCR Not Detected (Not Detect); Streptococcus by PCR Not Detected (Not Detect); Streptococcus pneumoniae PCR Not Detected (Not Detect); Streptococcus pyogenes (A) PCR Not Detected (Not Detect); blaKPC Carbapenem-Resist Gene Not Detected (Not Detect)
[2018-09-23 14:28] LABS: Candida albicans by PCR Not Detected (Not Detect); Candida glabrata by PCR Not Detected (Not Detect); Candida krusei by PCR Not Detected (Not Detect); Candida parapsilosis by PCR Not Detected (Not Detect); Candida tropicalis by PCR Not Detected (Not Detect); Enterobacter cloacae Cmplx PCR Not Detected (Not Detect); Enterobacteriaceae by PCR DETECTED (Not Detect); Escherichia coli by PCR DETECTED (Not Detect); Klebsiella oxytoca by PCR Not Detected (Not Detect); Klebsiella pneumoniae by PCR Not Detected (Not Detect); Proteus by PCR Not Detected (Not Detect); Pseudomonas aeruginosa by PCR Not Detected (Not Detect); Serratia marcescens by PCR Not Detected (Not Detect)
[2018-09-23] MEDS: *HR* Heparin 5,000 UNIT/ML VIAL SQ SCH (14:37)
--- NOTE | 2018-09-23 16:48 | Electrocardiograph Report ---
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
[2018-09-23] MEDS ORDERED: cefTRIAXone 2,000 MG in Water for inj. (sterile) 20 ML 20 ML IVP SCH (18:00)
[2018-09-23] MEDS: PERPHENAZINE PO SCH (20:14)
[2018-09-23] MEDS: AMITRIPTYLINE HCL PO SCH (20:14)
--- NOTE | 2018-09-23 20:50 | Anesthesia Evaluation PreOp ---
Date of Encounter: 09/23/18 Time of Encounter: 20:50 - Past History Planned Operation: Cystoscopy Stent Cardiac History: Arrhythmia (PSVT on Coreg and Cardizem), Other (Elevated Troponins, Anemia) Pulmonary History: Denies Any Significant HX [employer] History: Denies Any Significant HX Other Medical History: Renal (CKD) Anesthesia History: No Prior Anesthetic Complications : No Alcohol Use: none Drug use: none Medications and Allergies Aspirin [Adult Aspirin] 81 mg PO DAILY 09/23/18 [History] Diltiazem CD (24hr) [Cardizem CD] 240 mg PO DAILY 09/23/18 [History] Ferrous Sulfate [Iron] 325 mg PO DAILY 09/23/18 [History] Furosemide [Lasix] 40 mg PO BID 09/23/18 [History] HYDROcodone/Acet 7.5/325 mg [Daphne 7.5-325 mg] 1 tab PO TID PRN 09/23/18 [Hist ory] Metoprolol Succinate [Toprol Xl] 50 mg PO DAILY 09/23/18 [History] Omeprazole [PriLOSEC] 40 mg PO BID 09/23/18 [History] Perphenazine/Amitriptyline HCl [Perphen-Amitrip 4 mg-25 mg Tab] 1 tab PO BID 09/23/18 [History] Sertraline [Zoloft] 50 mg PO DAILY 09/23/18 [History] Allergy/AdvReac Type Severity Reaction Status Date / Time No Known Allergies Allergy Verified 09/23/18 02:00 - Meds/Allergy Pre-op Review Medications Reviewed: Yes Allergies Reviewed: Yes Beta Blockers on Current Med List: No Anesthesia Results - Labs 09/23/18 08:27 09/23/18 01:40 - Imaging EKG: report reviewed (SR occ PSVT) Anesthesia Exam O2 Sat Height 1.68 m Height 1.73 m Weight 73 kg Weight 75.296 kg O2 Sat by Pulse Oximetry 92 O2 Sat by Pulse Oximetry 95 O2 Sat by Pulse Oximetry 95 O2 Sat by Pulse Oximetry 96 O2 Sat by Pulse Oximetry 94 O2 Sat by Pulse Oximetry 93 O2 Sat by Pulse Oximetry 92 O2 Sat by Pulse Oximetry 95 O2 Sat by Pulse Oximetry 97 O2 Sat by Pulse Oximetry 98 O2 Sat by Pulse Oximetry 96 Vital Signs Temp Pulse Resp BP Pulse Ox 102.6 F H 114 26 156/75 96 09/23/18 01:24 09/23/18 01:24 09/23/18 01:24 09/23/18 01:24 09/23/18 01:24 Height: 5'6 Weight: 160 lbs NPO (# of Hours): MN Pain Scale: 0 - HEENT Pupil (Motor): Pupils equal, EOMI Mallampati: III Oral Opening: Less than or equal to 3 - [employer] LOC: Oriented [employer] Motor: Normal RUE, Normal LUE, Normal RLE, Normal LLE, Normal Face [employer] Sensory: Normal: RUE, LUE, RLE, LLE, Face - Cardiac Rhythm: Regular Murmur: None JVD: No Carotid Bruit: No - Pulmonary Breath Sounds: bilateral Clear Respiratory Effort: Symmetrical Anesthesia Assess/Plan ASA Score: 3 (Arrhythmia CKD Anemia) Level of consciousness: Cooperative, Oriented Anesthetic Plan: General Autologous Blood: No Monitoring Plan: Standard Monitors Recovery Plan: PACU (Discussed GA, agrees to proceed)
[2018-09-23] MEDS ORDERED: *HR* Propofol 200 MG/20 ML VIAL IVP ONE (23:10)
[2018-09-23] MEDS ORDERED: *HR* FentaNYL (PF) 100 MCG/2 ML VIAL ONE (23:10)
[2018-09-23] MEDS ORDERED: Dexamethasone 4 MG/ML VIAL ONE (23:11)
[2018-09-23] MEDS ORDERED: Ondansetron 4 MG/2 ML VIAL ONE (23:11)
[2018-09-23] MEDS ORDERED: Lidocaine -MPF 2% 2 ML VIAL ONE (23:11)
[2018-09-23] MEDS ORDERED: Isovue-300 50 ML VIAL IVP ONE (23:12)
--- NOTE | 2018-09-23 23:59 | Operative Note ---
Date of procedure: 09/23/18 Pre-op diagnosis: Right ureteral calculus Post-op diagnosis: same Procedure: Cystoscopy, right retrograde ureteral pyelography with intraoperative interpretation of radiographic images by surgeon in real time to facilitate procedure, right double-J stent placement Implants: 6 x 26 right double-J stent Complications: none Anesthesia: GETA Surgeon: Elvis Arvizu Was there an podiatric assistant present: No Estimated blood loss (cc): 0 Specimen: none Condition: stable Disposition: PACU Procedure in Detail: Patient presents for obstructing 6 mm distal right ureteral calculus in the setting of active UTI and signs of emerging urosepsis. The patient was brought to the operating theater placed on table in supine position. Is identified by name date of and administered a general anesthetic. The patient was positioned in dorsal lithotomy then prepped and draped in the normal sterile fashion. Cystoscope was inserted into the urethral meatus and advanced with the bladder under direct visualization. There is significant particulate settlement at the base of the bladder. However, there were no mucosal lesion suspicious for tumor. An open-ended catheter was placed the tip of the right ureteral orifice and with gentle injection of contrast a retrograde ureteropyelogram was performed. Intraoperative interpretation of radiographic images in real time by surgeon revealed hydroureteronephrosis down to level of the distal ureter consistent with CT scan of stone at the level of the UVJ. Based on these findings stenting was indicated. Under fluoroscopic guidance a Glidewire was advanced into the calyceal system of the right upper pole. Over the Glidewire a 6 x 26stent was advanced. Once the stent was felt to be in good position Glidewire was removed. Proximal distal curls of the stent were confirmed in satisfactory position using fluoroscopy. This was felt to be an excellent Result. All instruments removed from the patient's bladder. This ended the operative procedure
[2018-09-24] MEDS: Insulin LISPRO 300 UNITS/3 ML VIAL SQ SCH ×4 (00:22→20:16)
--- NOTE | 2018-09-24 00:29 | Anesthesia Evaluation Post Op ---
Date of Encounter: 09/24/18 Time of Encounter: 00:30 - Vital Signs Vital Signs: O2 Sat Height 1.68 m Height 1.73 m Weight 73 kg Weight 75.296 kg O2 Sat by Pulse Oximetry 92 O2 Sat by Pulse Oximetry 95 O2 Sat by Pulse Oximetry 95 O2 Sat by Pulse Oximetry 96 O2 Sat by Pulse Oximetry 94 O2 Sat by Pulse Oximetry 93 O2 Sat by Pulse Oximetry 92 O2 Sat by Pulse Oximetry 95 O2 Sat by Pulse Oximetry 97 O2 Sat by Pulse Oximetry 98 O2 Sat by Pulse Oximetry 96 Vital Signs Temp Pulse Resp BP Pulse Ox 102.6 F H 114 26 156/75 96 09/23/18 01:24 09/23/18 01:24 09/23/18 01:24 09/23/18 01:24 09/23/18 01:24 - Lungs Lungs: Clear Ascult./Percussion - Airway Airway: Non-obstructed - Cardiovascular Regular Rate - Mental Status Mental Status: Alert & Oriented, Answers Appropriately - Pain Pain Scale: 0 - Nausea Vomiting Nausea Vomiting: Not Present - Hydration Hydration: NPO - Discharge PostOp Status: Transfer Patient to floor
[2018-09-24] MEDS ORDERED: Ondansetron 4 MG/2 ML VIAL IVP PRN (00:48)
[2018-09-24] MEDS ORDERED: Naloxone 0.4 MG/ML INJ IVP PRN (00:48)
[2018-09-24] MEDS ORDERED: D5% in Water 1,000 ML IVC PRN (00:48)
[2018-09-24] MEDS ORDERED: Dextrose Gel 15 GM/37.5 ML TUBE PO PRN ×2 (00:48)
[2018-09-24] MEDS ORDERED: *HR* Dextrose 50 % in Water (Syg) 50 ML SYRINGE IVP PRN (00:48)
[2018-09-24] MEDS ORDERED: D5% in 0.9% NACL 1,000 ML IVC SCH (00:48)
[2018-09-24] MEDS: traMADol 50 MG TABLET PO PRN ×2 (01:38→20:17)
[2018-09-24] MEDS ORDERED: Insulin LISPRO 300 UNITS/3 ML VIAL SQ SCH (06:00)
[2018-09-24] MEDS: *HR* Heparin 5,000 UNIT/ML VIAL SQ SCH ×3 (06:54→20:15)
[2018-09-24 06:58] LABS: Hematocrit 25.3 % (35.3-44.9); Hemoglobin 8.2 g/dL (11.5-15.4); Mean Corpuscular HGB Conc 32.4 g/dL (31.6-35.5); Mean Corpuscular Hemoglobin 26.5 pg (28.0-33.3); Mean Corpuscular Volume 81.9 fL (83.0-100.0); Mean Platelet Volume 11.3 fL (9.4-12.4); Platelet Count 268 K/mcL (140-400); Red Blood Count 3.09 M/mcL (3.82-4.97); Red Cell Distribution Width 13.5 % (11.5-14.5)
[2018-09-24] MEDS: AMITRIPTYLINE HCL PO SCH ×3 (07:11→20:16)
[2018-09-24] MEDS: PERPHENAZINE PO SCH ×3 (07:11→20:16)
[2018-09-24 07:17] LABS: Calcium 8.4 mg/dL (8.6-10.3); Potassium 3.8 mEq/L (3.5-5.1)
--- NOTE | 2018-09-24 08:25 | Urology Progress Note ---
<Sary Beaver N - Last Filed: 09/24/18 08:27> Date of Encounter: 09/24/18 Time of Encounter: 07:30 - Assessment and Plan (1) Right ureteral stone Current Visit: Yes Status: Acute Assessment and plan: Patient is an 87-year-old female who presents with a right ureteral stone and urinary tract infection. Patient is one day status post cystoscopy, right retrograde ureteral pyelography with intraoperative interpretation of radiographic images by surgeon in real time to facilitate procedure, right double-J stent placement. Vital signs are currently stable and afebrile. White blood cell count is trending down. Creatinine is improved 1.54. Discussed stage stone procedure as well as postoperative expectations with ureteral stent. Patient verbalizes understanding. Final blood cultures with sensitivities are pending. Patient is receiving IV Rocephin. (2) UTI (urinary tract infection) Current Visit: Yes Status: Acute Qualifiers: Urinary tract infection type: site unspecified Hematuria presence: without hematuria Qualified Code(s): N39.0 - Urinary tract infection, site not specified Progress Note Narrative: POD #1. Patient seen and examined lying in bed in no apparent distress. Patient is tolerating clear liquids without nausea or vomiting. Patient requesting diet advancement. Urine is transparent light yellow in tubing. Patient denies fever, chills, flank pain, gross hematuria. Objective Initial Vital Signs Temp Pulse Resp BP Pulse Ox 102.6 F H 114 26 156/75 96 09/23/18 01:24 09/23/18 01:24 09/23/18 01:24 09/23/18 01:24 09/23/18 01:24 - General physical appearance Present: well developed, no distress, no pain - Respiratory Present: normal expansion, normal respiratory effort - Abdomen Present: soft, non tender - Genitourinary Urine Appearance: Present: Clear - Integumentary Present: no rash, no abnormal pigmentation - Musculoskeletal Present: normal posture - Psychiatric Present: oriented to time, oriented to person, oriented to place, speech is normal, memory intact - Labs 09/24/18 05:49 09/24/18 05:49 Diabetes panel 09/24/18 Range/Units 05:49 Sodium 135 L (136-145) mEq/L Potassium 3.8 (3.5-5.1) mEq/L Chloride 102 (98-107) mEq/L Carbon Dioxide 23 (23-29) mEq/L BUN 35 H (8-23) mg/dL Creatinine 1.54 H (0.60-1.20) mg/dL Glucose 150 H (70-105) mg/dL Calcium 8.4 L (8.6-10.3) mg/dL Triglycerides 119 (< 150) mg/dL HDL Cholesterol 46 (40-59) mg/dL Calcium panel 09/23/18 09/24/18 Range/Units 08:27 05:49 Calcium 8.4 L (8.6-10.3) mg/dL Phosphorus 3.9 (2.7-4.5) mg/dL Pituitary panel 09/24/18 Range/Units 05:49 Sodium 135 L (136-145) mEq/L Potassium 3.8 (3.5-5.1) mEq/L Chloride 102 (98-107) mEq/L Carbon Dioxide 23 (23-29) mEq/L BUN 35 H (8-23) mg/dL Creatinine 1.54 H (0.60-1.20) mg/dL Glucose 150 H (70-105) mg/dL Calcium 8.4 L (8.6-10.3) mg/dL Adrenal panel 09/24/18 Range/Units 05:49 Sodium 135 L (136-145) mEq/L Potassium 3.8 (3.5-5.1) mEq/L Chloride 102 (98-107) mEq/L Carbon Dioxide 23 (23-29) mEq/L BUN 35 H (8-23) mg/dL Creatinine 1.54 H (0.60-1.20) mg/dL Glucose 150 H (70-105) mg/dL Calcium 8.4 L (8.6-10.3) mg/dL Consult Discharge Plan - Plan Referrals: Moreno Zhang, [Primary Care Provider] - 10/07/18 9:30 am (Please follow up as schedule....) <Elvis Arvizu - Last Filed: 09/25/18 09:30> Date of Encounter: 09/24/18 Time of Encounter: 17:30 - Assessment and Plan (1) Right ureteral stone Current Visit: Yes Status: Acute Assessment and plan: Seen and examined independently on 24 Sep 2018. Agree with assessment and plan as written by DURAN Beaver Objective Initial Vital Signs Temp Pulse Resp BP Pulse Ox 102.6 F H 114 26 156/75 96 09/23/18 01:24 09/23/18 01:24 09/23/18 01:24 09/23/18 01:24 09/23/18 01:24 - Labs 09/25/18 04:37 09/25/18 04:37 Diabetes panel 09/25/18 Range/Units 04:37 Sodium 137 (136-145) mEq/L Potassium 3.5 (3.5-5.1) mEq/L Chloride 102 (98-107) mEq/L Carbon Dioxide 24 (23-29) mEq/L BUN 35 H (8-23) mg/dL Creatinine 1.39 H (0.60-1.20) mg/dL Glucose 132 H (70-105) mg/dL Calcium 8.7 (8.6-10.3) mg/dL Calcium panel 09/25/18 Range/Units 04:37 Calcium 8.7 (8.6-10.3) mg/dL Pituitary panel 09/25/18 Range/Units 04:37 Sodium 137 (136-145) mEq/L Potassium 3.5 (3.5-5.1) mEq/L Chloride 102 (98-107) mEq/L Carbon Dioxide 24 (23-29) mEq/L BUN 35 H (8-23) mg/dL Creatinine 1.39 H (0.60-1.20) mg/dL Glucose 132 H (70-105) mg/dL Calcium 8.7 (8.6-10.3) mg/dL Adrenal panel 09/25/18 Range/Units 04:37 Sodium 137 (136-145) mEq/L Potassium 3.5 (3.5-5.1) mEq/L Chloride 102 (98-107) mEq/L Carbon Dioxide 24 (23-29) mEq/L BUN 35 H (8-23) mg/dL Creatinine 1.39 H (0.60-1.20) mg/dL Glucose 132 H (70-105) mg/dL Calcium 8.7 (8.6-10.3) mg/dL
--- NOTE | 2018-09-24 08:59 | Event Note ---
Date of Encounter: 09/24/18 Time of Encounter: 08:54 - Cardiology Event Note TTE resulted--LVEF 60-65%. Normal LV chamber size and systolic function. Mild cLVH. Mild LVDD. Normal RV structure and function. Mild MR. Mild VA. Mild phtn. Telemetry reviewed. SR. Occasional brief SVT episodes, no sustained episodes. On cardizem 30mg [id number]. Will transition to Cardizem CD 120mg daily. Cardiology/EP signing off. Reconsult PRN. Outpt follow-up coordinated.
[2018-09-24] MEDS ORDERED: Pantoprazole 40 MG VIAL IVP SCH (09:00)
[2018-09-24] MEDS ORDERED: Patient Taking Own Medication 1 EACH PO SCH (09:00)
[2018-09-24] MEDS ORDERED: Diltiazem CD (24hr) 120 MG CAPSULE PO SCH (09:15)
[2018-09-24] MEDS: Levalbuterol Neb 0.63 MG/3 ML IH SCH ×2 (10:51→19:51)
--- NOTE | 2018-09-24 11:27 | Internal Med Progress Note ---
Hospitalist Progress Note - Encounter Date of Encounter: 09/24/18 Time of Encounter: 11:26 - Subjective Interval History: Patient seen and examined at bedside. Patient states that she feels much better from yesterday. She feels like her abdominal pain as well as her nausea and vomiting have improved. She denies fever, chills, chest pain, shortness of breath, palpitations. - Exam Vitals: Temp Pulse Resp BP Pulse Ox 98.4 F 79 16 153/75 96 09/24/18 11:06 09/24/18 11:06 09/24/18 11:06 09/24/18 11:06 09/24/18 11:06 Exam: General: Alert and oriented x3. No acute distress HEENT: EOM, pupils equal, round and reactive. Mucous membranes moist Cardiovascular: Regular rate and rhythm, normal S1 & S2, no rubs, murmurs or gallops. Lungs: Lungs clear to auscultation bilaterally, no rales, rhonchi, wheezes. Abdomen: Soft, nontender, nondistended. Normoactive bowel sounds Extremities: No deformity, no edema or tenderness, no joint swelling or clubbing. Neurological: Cranial nerves II through XII intact, no focal deficits Skin: Normal color, no rash, no lesions. - Assessment and Plan (1) Sepsis Current Visit: Yes Status: Resolved Assessment and Plan: Sepsis secondary to pyelonephritis and infected kidney stone. Sepsis appears resolved at this time, heart rate normal, leukocytosis improving, afebrile. Continue antibiotics for UTI. (2) Calculus of kidney Current Visit: Yes Status: Acute Assessment and Plan: Postop day 1 status post stent placement for stone in the setting of UTI. Seems to be recovering well, minimal pain at this time. Urology following and patient will likely need stone extraction in the future. (3) Acute kidney injury Current Visit: Yes Status: Acute Assessment and Plan: Likely acute kidney injury on CKD stage III, previous records revealed that patient's GFR was line is likely 40-50. Creatinine significantly improved today after treatment of UTI and ureteral stent placement. Good urine output, encourage oral fluid intake. Continue to monitor renal function (4) UTI (urinary tract infection) Current Visit: Yes Status: Acute Assessment and Plan: Patient had evidence of UTI in the setting of kidney stone, likely resulting in pyelonephritis with bacteremia. Patient is postop day 1 status post cystoscopy and stent placement as discussed above. Seems to be recovering well. Continue ceftriaxone (5) Bacteremia Current Visit: Yes Status: Acute Assessment and Plan: Patient has gram-negative rods growing in blood cultures 2, source likely urinary tract. Clinically improving. Await final culture results and sen sitivities. Repeat blood cultures pending. Continue ceftriaxone (6) Elevated troponin Current Visit: Yes Status: Acute Assessment and Plan: Troponins peaked and are trending down. No chest pain. Patient evaluated by cardiology who felt this is not consistent with ACS, heparin drip was discontinued. Echocardiogram reviewed and shows no acute changes. Cardiology has signed off. Continue monitor for chest pain (7) Pleural effusion Current Visit: Yes Status: Acute Assessment and Plan: Very mild pleural effusion noted on abdomen and pelvis CT, reviewed by me. Patient asymptomatic at this time. (8) PSVT (paroxysmal supraventricular tachycardia) Current Visit: Yes Status: Acute Assessment and Plan: Heart rate under control at this time. 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 Currently off Cardizem and tolerating by mouth well. We will follow up with EP as an outpatient. Continue cardiac telemetry. (9) DVT prophylaxis Current Visit: Yes Status: Acute Assessment and Plan: Heparin 5000 units subcutaneous every 8 hours - Time Spent with Patient Total time spent is greater than 50% in coordination of care (as documented) at patient's floor/unit and/or counseling patient: Internal Medicine: Result - Labs CBC & Chem 7: 09/24/18 05:49 09/24/18 05:49 Labs: Short CBC 09/24/18 Range/Units 05:49 WBC 14.3 H (4.3-11.1) K/mcL Hgb 8.2 L (11.5-15.4) g/dL Hct 25.3 L (35.3-44.9) % Plt Count 268 (140-400) K/mcL BMP 09/24/18 05:49 Sodium 135 L Potassium 3.8 Chloride 102 Carbon Dioxide 23 BUN 35 H Creatinine 1.54 H Glucose 150 H Calcium 8.4 L Cardiac Enzymes 09/23/18 09/23/18 Range/Units 13:39 20:55 Troponin I 1.38 H* 1.63 H* (< 0.04) ng/mL - ABG Interpretation ABG results: PT/INR, D-dimer PT 12.5 Seconds (9.4-12.1) H 09/23/18 08:27 - Impressions Impressions Echocardiogram 09/23/18 13:14 Impressions: LVEF 60-65%. Normal LV chamber size and systolic function. Mild concentric left ventricular hypertrophy. Mild left ventricular diastolic dysfunction. Normal right ventricular structure and function. Mild mitral regurgitation. Mild pulmonic regurgitation. Mild pulmonary hypertension. Left Ventricular Wall Motion: Rest Echo Findings All wall segments showed normal motion. Findings: Study Quality * Technically adequate exam. ECG Findings * Normal sinus rhythm. Left Ventricle * LVEF 60-65%. * Normal LV chamber size and systolic function. * Mild concentric left ventricular hypertrophy. * Mild left ventricular diastolic dysfunction. Right Ventricle * Normal right ventricular structure and function. Left Atrium * Normal left atrial size. Right Atrium * Normal right atrial size. Interatrial Septum * Interatrial septum not well evaluated. * No evidence of PFO by color Doppler. Aortic Valve * Aortic valve not well visualized. * No aortic stenosis. * No aortic regurgitation. Mitral Valve * Mild mitral annular calcification * Mildly calcified mitral valve leaflets. * Mild mitral regurgitation. * No mitral stenosis. Tricuspid Valve * Normal tricuspid valve structure. * No tricuspid stenosis. * Trace tricuspid regurgitation. * Estimated RVSP is 39 mmHg. * Estimated RA pressure is 15 mmHg. * Mild pulmonary hypertension. Pulmonic Valve * Pulmonic valve is not well visualized. * No pulmonic stenosis. * Mild pulmonic regurgitation. Aorta * Normally sized aortic root. Pericardium * The pericardium appears normal. IVC * The IVC is dilated. * < 50% respiratory change. Pulmonary Artery * Normal visualized portions of the main pulmonary artery. Retrograde Pyelogram 09/24/18 00:00 IMPRESSION: Intraprocedural fluoroscopic spot images as above. See separate procedure report for more information. D/ / Monet Schmitz Cha, MD / Monet Schmitz Cha, MD Interpreting Provider: Monet Schmitz Cha, MD Consult Discharge Plan - Plan Referrals: Moreno Zhang DO [Primary Care Provider] - (1) Sepsis Qualifiers: Sepsis type: sepsis due to unspecified organism Qualified Code(s): A41.9 - Sepsis, unspecified organism (4) UTI (urinary tract infection) Qualifiers: Urinary tract infection type: acute pyelonephritis Qualified Code(s): N10 - Acute pyelonephritis
--- NOTE | 2018-09-24 15:12 | Electrocardiograph Report ---
[address] [address] Test Date: 2018-09-23 Pat Name: Jessi Broussard Department: [id number] Room: 2A26 Gender: F Marketing Development Representative: : 1930 Requested By: Azar Rueda Order Number: [id number] Reading MD: Kolby Bauer Measurements Intervals [place] Rate: 144 P: [place]: QRS: 125 QRSD: 126 T: 74 QT: 279 QTc: 414 Interpretive Statements Artifact complicates interpretation Probable atrial tachycardia Nonspecific intraventricular conduction delay Electronically Signed On 09-24-2018 15:11:31 EST by Kolby Bauer
[2018-09-24] MEDS: cefTRIAXone 2,000 MG in Water for inj. (sterile) 20 ML 20 ML IVP SCH (16:39)
[2018-09-24] MEDS: D5% in 0.9% NACL 1,000 ML IVC SCH (21:53)
[2018-09-24] MEDS ORDERED: *HR* Metoprolol 5 MG/5 ML VIAL IVP ONE (22:59)
[2018-09-25] MEDS ORDERED: 0.9 % Sodium Chloride 500 ML ONE (00:34)
--- NOTE | 2018-09-25 01:16 | Event Note ---
Addendum entered and electronically signed by Jelani Anderson CNP 09/25/18 06:03: Pts. Cardizem gtt started and has been titrating up all night. Pts. HR was as high as 180. Discussed pt. w/Dr. Dillon d/t HR not responding to Cardizem gtt. Pt. SOB w/Oxymask on exam. BP 199/101 and HR in 150s. Dr. Dillon ordered IVP Metoprolol to try and bring HR/BP down. Pt. began to respond w/HR that began to slow to 90s. BP responded to 168/83. At approx 05:30, pts. HR began to increase to 120s. Cardizem gtt at 15. SpO2 bounced between 80s and 90s. Stat ABG ordered and BiPAP. ABG showed pH 7.43, pCO2 37, pO2 59, HCO3 25, Total CO2 26, O@ saturation 91, Base excess 0. CXR ordered by Dr. Dillon showed worsening pulmonary edema and development of bilateral pleural effusions, superimposed PNA cannot be excluded. Pt. was given 40 mg IVP lasix during first encounter. Dr. Dillon recommended second 40 mg IVP dose of lasix d/t pleural effusions. Urine output good following lasix. Once on BiPAP, SpO2 increased to 95% and HR continued to bounce between 90s. Depending upon pts. response to BiPAP, Dr. Dillon recommended possible nitro past to help BP/HR. Nurse instructed to monit or closely and keep me updated in order to make decision about nitro paste. Original Note: Date of Encounter: 09/24/18 Time of Encounter: 22:08 Alerted by patient's nurse CALLI Burnett that patient was having a run of SVT with heart rate maintaining in the 150s. Patient was previously on Cardizem drip which was changed to 120 mg by mouth Cardizem with first dose this morning. Patient's nurse informed me several minutes later the patient was now controlled and will continue to monitor. Alerted several times throughout the evening the patient's heart rate continued to rise and to 150s and it 22:43 was notify the patient's heart rate is maintaining at this rate with BP of 151/94. Patient had received dose of Coreg at 16:40 so one-time dose of metoprolol IVP ordered with instructions to keep me posted on patient's heart rate and BP. Notified by patient's nurse at 00:00 the patient's heart rate was now maintaining in the 150s again with SVT. BP 120/81. 00:04 Cardizem gtt ordered to start at 2.5 mg with usual titration protocol. Patient's nurse instructed to keep me informed and update me of patient's progress. Patient to be monitored closely overnight.
[2018-09-25] MEDS: Levalbuterol Neb 1.25 MG/3 ML IH SCH ×5 (03:40→22:21)
[2018-09-25] MEDS ORDERED: *HR* Metoprolol 5 MG/5 ML VIAL IVP ONE ×3 (03:47→04:06)
[2018-09-25] MEDS ORDERED: Furosemide 40 MG/4 ML VIAL IVP ONE ×3 (03:48→16:00)
[2018-09-25] MEDS ORDERED: *HR* Morphine 2 MG/ML SYRINGE IVP PRN (03:51)
[2018-09-25] MEDS ORDERED: *HR* Morphine 2 MG/ML SYRINGE IVP ONE (03:59)
[2018-09-25] MEDS: *HR* Heparin 5,000 UNIT/ML VIAL SQ SCH ×4 (04:43→21:43)
[2018-09-25 05:04] LABS: Eosinophils % 0.1 %; Hematocrit 29.3 % (35.3-44.9); Hemoglobin 9.3 g/dL (11.5-15.4); Immature Granulocytes % 0.5 % (0-4); Lymphocytes % 4.5 %; Mean Corpuscular HGB Conc 31.7 g/dL (31.6-35.5); Mean Corpuscular Hemoglobin 26.4 pg (28.0-33.3); Mean Corpuscular Volume 83.2 fL (83.0-100.0); Mean Platelet Volume 10.6 fL (9.4-12.4); Monocytes % 7.9 %; Platelet Count 377 K/mcL (140-400); Red Blood Count 3.52 M/mcL (3.82-4.97); Red Cell Distribution Width 13.5 % (11.5-14.5); Segmented Neutrophils % 86.9 %
[2018-09-25 05:05] LABS: Basophils % 0.1 %; Lymphocytes # 0.8 K/mcL (0.6-4.6); Monocytes # 1.5 K/mcL (0.0-1.3); Neutrophils # 16.1 K/mcL (1.6-8.9)
[2018-09-25 05:26] LABS: Calcium 8.7 mg/dL (8.6-10.3); Magnesium 1.8 mg/dL (1.6-2.6); Potassium 3.5 mEq/L (3.5-5.1)
[2018-09-25 05:51] LABS: ABG Base Excess 0 mEq/L (-2 to 3); ABG HCO3 25 mEq/L (21-27); ABG Oxygen Saturation 91 % (95-98); ABG PCO2 37 mmHg (35-45); ABG PH 7.43 pH Units (7.32-7.45); ABG PO2 59 mmHg (85-104); ABG TCO2 26 mEq/L (20-26)
[2018-09-25] MEDS ORDERED: Nitroglycerin 1 INCH/GM PACKET TP ONE (07:08)
[2018-09-25] MEDS: Insulin LISPRO 300 UNITS/3 ML VIAL SQ SCH ×4 (07:38→21:44)
[2018-09-25] MEDS: *HR* Metoprolol 5 MG/5 ML VIAL IVP ONE (08:11)
[2018-09-25] MEDS: AMITRIPTYLINE HCL PO SCH ×2 (08:17→21:44)
[2018-09-25] MEDS: PERPHENAZINE PO SCH ×2 (08:17→21:44)
[2018-09-25] MEDS ORDERED: Diltiazem CD (24hr) 180 MG CAPSULE PO SCH (09:00)
--- NOTE | 2018-09-25 10:17 | Urology Progress Note ---
<Sary Beaver N - Last Filed: 09/25/18 10:15> Date of Encounter: 09/25/18 Time of Encounter: 10:00 - Assessment and Plan (1) Right ureteral stone Current Visit: Yes Status: Acute Assessment and plan: Patient is an 87-year-old female who presents 2 days postoperatively from cystoscopy, right retrograde ureteral pyelography with intraoperative interpretation of radiographic images by surgeon in real time to facilitate procedure, right double-J stent placement. Vital signs are stable and afebrile. Creatinine improved to 1.39. (2) UTI (urinary tract infection) Current Visit: Yes Status: Acute Assessment and plan: Patient is an 87-year-old female who presents with right ureteral stone and urinary tract infection. Urine culture is positive for Escherichia coli. Patient is receiving IV Rocephin. Qualifiers: Urinary tract infection type: acute pyelonephritis Qualified Code(s): N10 - Acute pyelonephritis Progress Note Subjective: no new complaints, feels better Narrative: POD #2. Patient seen and examined sitting upright in bed in no apparent distress. Patient is tolerating normal diet without nausea or vomiting. Patient has indwelling catheter that is draining clear urine. Patient states pain is well-controlled. Patient denies fever, chills, flank pain, gross hematuria. Objective Initial Vital Signs Temp Pulse Resp BP Pulse Ox 102.6 F H 114 26 156/75 96 09/23/18 01:24 09/23/18 01:24 09/23/18 01:24 09/23/18 01:24 09/23/18 01:24 - General physical appearance Present: well developed, no distress, no pain - Respiratory Present: normal expansion, normal respiratory effort - Abdomen Present: soft, non tender - Genitourinary Urine Appearance: Present: Clear - Integumentary Present: no rash, no abnormal pigmentation - Musculoskeletal Present: normal posture - Psychiatric Present: oriented to time, oriented to person, oriented to place, speech is normal, memory intact - Labs 09/25/18 04:37 09/25/18 04:37 Diabetes panel 09/25/18 Range/Units 04:37 Sodium 137 (136-145) mEq/L Potassium 3.5 (3.5-5.1) mEq/L Chloride 102 (98-107) mEq/L Carbon Dioxide 24 (23-29) mEq/L BUN 35 H (8-23) mg/dL Creatinine 1.39 H (0.60-1.20) mg/dL Glucose 132 H (70-105) mg/dL Calcium 8.7 (8.6-10.3) mg/dL Calcium panel 09/25/18 Range/Units 04:37 Calcium 8.7 (8.6-10.3) mg/dL Pituitary panel 09/25/18 Range/Units 04:37 Sodium 137 (136-145) mEq/L Potassium 3.5 (3.5-5.1) mEq/L Chloride 102 (98-107) mEq/L Carbon Dioxide 24 (23-29) mEq/L BUN 35 H (8-23) mg/dL Creatinine 1.39 H (0.60-1.20) mg/dL Glucose 132 H (70-105) mg/dL Calcium 8.7 (8.6-10.3) mg/dL Adrenal panel 09/25/18 Range/Units 04:37 Sodium 137 (136-145) mEq/L Potassium 3.5 (3.5-5.1) mEq/L Chloride 102 (98-107) mEq/L Carbon Dioxide 24 (23-29) mEq/L BUN 35 H (8-23) mg/dL Creatinine 1.39 H (0.60-1.20) mg/dL Glucose 132 H (70-105) mg/dL Calcium 8.7 (8.6-10.3) mg/dL Consult Discharge Plan - Plan Referrals: Moreno Zhang, [Primary Care Provider] - 10/07/18 9:30 am (Please follow up as schedule....) <Elvis Arvizu - Last Filed: 09/25/18 16:24> Date of Encounter: 09/25/18 - Assessment and Plan (1) Right ureteral stone Current Visit: Yes Status: Acute Assessment and plan: Patient seen and examined independently. I am in agreement with the assessment and plan as outlined by our Urologic Surgery Department Physician Compression Molding Machine Operator, Sd. Objective Initial Vital Signs Temp Pulse Resp BP Pulse Ox 102.6 F H 114 26 156/75 96 09/23/18 01:24 09/23/18 01:24 09/23/18 01:24 09/23/18 01:24 09/23/18 01:24 - Labs 09/25/18 04:37 09/25/18 04:37 Diabetes panel 09/25/18 Range/Units 04:37 Sodium 137 (136-145) mEq/L Potassium 3.5 (3.5-5.1) mEq/L Chloride 102 (98-107) mEq/L Carbon Dioxide 24 (23-29) mEq/L BUN 35 H (8-23) mg/dL Creatinine 1.39 H (0.60-1.20) mg/dL Glucose 132 H (70-105) mg/dL Calcium 8.7 (8.6-10.3) mg/dL Calcium panel 09/25/18 Range/Units 04:37 Calcium 8.7 (8.6-10.3) mg/dL Pituitary panel 09/25/18 Range/Units 04:37 Sodium 137 (136-145) mEq/L Potassium 3.5 (3.5-5.1) mEq/L Chloride 102 (98-107) mEq/L Carbon Dioxide 24 (23-29) mEq/L BUN 35 H (8-23) mg/dL Creatinine 1.39 H (0.60-1.20) mg/dL Glucose 132 H (70-105) mg/dL Calcium 8.7 (8.6-10.3) mg/dL Adrenal panel 09/25/18 Range/Units 04:37 Sodium 137 (136-145) mEq/L Potassium 3.5 (3.5-5.1) mEq/L Chloride 102 (98-107) mEq/L Carbon Dioxide 24 (23-29) mEq/L BUN 35 H (8-23) mg/dL Creatinine 1.39 H (0.60-1.20) mg/dL Glucose 132 H (70-105) mg/dL Calcium 8.7 (8.6-10.3) mg/dL
--- NOTE | 2018-09-25 13:48 | Internal Med Progress Note ---
Hospitalist Progress Note - Encounter Date of Encounter: 09/25/18 Time of Encounter: 10:20 - Subjective Interval History: Patient seen and examined at bedside. Patient states that she feels much better from yesterday. She feels like her abdominal pain as well as her nausea and vomiting have improved. She denies fever, chills, chest pain, shortness of breath, palpitations. - Exam Vitals: Temp Pulse Resp BP Pulse Ox 97.7 F 72 20 137/71 90 09/25/18 11:16 09/25/18 11:16 09/25/18 11:16 09/25/18 11:16 09/25/18 11:16 Exam: General: Alert and oriented x3. No acute distress, sitting up in bed HEENT: Mucous membranes moist Cardiovascular: Regular rate and rhythm, normal S1 & S2, no rubs, murmurs or gallops. Trace lower extremity edema Lungs: Bilateral crackles present, no wheezes. No respiratory distress Abdomen: Soft, nontender, nondistended. Normoactive bowel sounds Extremities: No deformity or clubbing. Neurological: Cranial nerves II through XII intact, no focal deficits - Assessment and Plan (1) Acute respiratory failure with hypoxia Current Visit: Yes Status: Acute Assessment and Plan: Patient episode overnight with tachycardia and hypoxia with chest x-ray evidence of pulmonary edema. This is likely due to acute fluid overload in the setting of diastolic heart failure given the amount of fluid she received for sepsis and intraoperatively. She is no longer requiring BiPAP and is currently on supplemental oxygen maintaining her saturations greater than 90%. I suspect her hypoxia and oxygen requirement should continue to improve with diuresis. (2) Heart failure Current Visit: Yes Status: Acute Assessment and Plan: Patient appears to have acute on chronic diastolic heart failure with acute fluid overload that resulted in shortness of breath and tachycardia overnight. Chest x-ray revealed pulmonary edema. Patient received 2 doses of Lasix overnight and has responded well to this. She is now on submental oxygen and tolerating this well, she says she feels much better. Patient is still noted to have crackles on exam so I feel like she would benefit from continued IV diuresis. Will given another dose of IV Lasix tonight and we will continue to assess the need for diuresis in the morning. Given her overnight hemodynamic changes with significant tachycardia and BiPAP requirements patient is at high risk for clinical deterioration due to exacerbation of heart failure and pulmonary edema. (3) Sepsis Current Visit: Yes Status: Resolved Assessment and Plan: Sepsis secondary to pyelonephritis and infected kidney stone. Blood cultures positive for Escherichia coli, sensitive to Rocephin. Sepsis appears resolved at this time, heart rate normal. Leukocytosis has worsened today but a feeling this is reactive in the setting of her respiratory distress overnight as her neutrophil count has actually improved. Continue antibiotics for UTI. (4) Calculus of kidney Current Visit: Yes Status: Acute Assessment and Plan: Postop day 2 status post stent placement for stone in the setting of UTI. Seems to be recovering well, minimal pain at this time. Urology following and patient will likely need stone extraction in the future. (5) Acute kidney injury Current Visit: Yes Status: Acute Assessment and Plan: Likely acute kidney injury on CKD stage III, previous records revealed that patient's GFR was line is likely 40-50. Creatinine continues to improve with treatment of UTI and ureteral stent placement. Good urine output, encourage oral fluid intake. Continue to monitor renal function in the setting of diuretic use (6) UTI (urinary tract infection) Current Visit: Yes Status: Acute Assessment and Plan: Patient had evidence of UTI in the setting of kidney stone, likely resulting in pyelonephritis with bacteremia. Patient is postop day 2 status post cystoscopy and stent placement as discussed above. Seems to be recovering well. Continue ceftriaxone. Urine culture shows sensitivity to ceftriaxone (7) Bacteremia Current Visit: Yes Status: Acute Assessment and Plan: Patient has pansensitive Escherichia coli, source likely urinary tract. Clinically improving. Repeat blood cultures pending. Continue ceftriaxone (8) Elevated troponin Current Visit: Yes Status: Acute Assessment and Plan: Troponins peaked and are trending down. No chest pain. Patient evaluated by cardiology who felt this is not consistent with ACS, heparin drip was discontinued. Cardiology has signed off. Continue monitor for chest pain (9) PSVT (paroxysmal supraventricular tachycardia) Current Visit: Yes Status: Acute Assessment and Plan: Heart rate under control at this time. She was noted to have some tachycardia overnight, likely due to pulmonary edema. 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 Currently off Cardizem and tolerating by mouth Cardizem well. We will follow up with EP as an outpatient. Continue cardiac telemetry. (10) DVT prophylaxis Current Visit: Yes Status: Acute Assessment and Plan: Heparin 5000 units subcutaneous every 8 hours - Time Spent with Patient Total time spent is greater than 50% in coordination of care (as documented) at patient's floor/unit and/or counseling patient: Internal Medicine: Result - Labs CBC & Chem 7: 09/25/18 04:37 09/25/18 04:37 Labs: Short CBC 09/25/18 Range/Units 04:37 WBC 18.5 H (4.3-11.1) K/mcL Hgb 9.3 L (11.5-15.4) g/dL Hct 29.3 L (35.3-44.9) % Plt Count 377 (140-400) K/mcL Neutrophils # 16.1 H (1.6-8.9) K/mcL BMP 09/25/18 04:37 Sodium 137 Potassium 3.5 Chloride 102 Carbon Dioxide 24 BUN 35 H Creatinine 1.39 H Glucose 132 H Calcium 8.7 - ABG Interpretation ABG results: ABG ABG pH 7.43 pH Units (7.32-7.45) 09/25/18 05:48 ABG pCO2 37 mmHg (35-45) 09/25/18 05:48 ABG pO2 59 mmHg (85-104) L 09/25/18 05:48 ABG O2 Saturation 91 % (95-98) L 09/25/18 05:48 PT/INR, D-dimer PT 12.5 Seconds (9.4-12.1) H 09/23/18 08:27 - Impressions Impressions Chest X-Ray 09/25/18 03:46 IMPRESSION: Worsening pulmonary edema and development of bilateral pleural effusions, superimposed pneumonia cannot be excluded. D/ / Vijay Corea MD / Vijay Corea MD Interpreting Provider: Vijay Corea MD Consult Discharge Plan - Plan Referrals: Moreno Zhang DO [Primary Care Provider] - 10/07/18 9:30 am (Please follow up as schedule....) (2) Heart failure Qualifiers: Heart failure type: diastolic Heart failure chronicity: acute on chronic Qualified Code(s): I50.33 - Acute on chronic diastolic (congestive) heart failure (3) Sepsis Qualifiers: Sepsis type: Escherichia coli Qualified Code(s): A41.51 - Sepsis due to Escherichia coli [E. coli] (6) UTI (urinary tract infection) Qualifiers: Urinary tract infection type: acute pyelonephritis Qualified Code(s): N10 - Acute pyelonephritis
[2018-09-25] MEDS: traMADol 50 MG TABLET PO PRN (16:26)
[2018-09-25] MEDS: cefTRIAXone 2,000 MG in Water for inj. (sterile) 20 ML 20 ML IVP SCH (18:38)
[2018-09-26] MEDS ORDERED: Furosemide 20 MG/2 ML VIAL IVP ONE (01:18)
[2018-09-26] MEDS: Levalbuterol Neb 1.25 MG/3 ML IH SCH ×4 (03:49→22:54)
[2018-09-26 04:12] LABS: Basophils % 0.2 %; Eosinophils # 0.2 K/mcL (0.0-0.6); Eosinophils % 1.4 %; Hematocrit 27.1 % (35.3-44.9); Hemoglobin 8.7 g/dL (11.5-15.4); Immature Granulocytes % 0.6 % (0-4); Lymphocytes # 1.4 K/mcL (0.6-4.6); Lymphocytes % 11.1 %; Mean Corpuscular HGB Conc 32.1 g/dL (31.6-35.5); Mean Corpuscular Volume 80.9 fL (83.0-100.0); Mean Platelet Volume 10.6 fL (9.4-12.4); Monocytes # 1.1 K/mcL (0.0-1.3); Monocytes % 8.7 %; Neutrophils # 9.8 K/mcL (1.6-8.9); Platelet Count 357 K/mcL (140-400); Red Blood Count 3.35 M/mcL (3.82-4.97); Red Cell Distribution Width 13.5 % (11.5-14.5)
[2018-09-26 04:29] LABS: Calcium 8.5 mg/dL (8.6-10.3); Magnesium 1.4 mg/dL (1.6-2.6); Potassium 2.7 mEq/L (3.5-5.1)
[2018-09-26] MEDS: traMADol 50 MG TABLET PO PRN (04:42)
--- NOTE | 2018-09-26 04:46 | Event Note ---
Date of Encounter: 09/25/18 Time of Encounter: 22:09 Alerted by pts. nurse CALLI Carcamo that the pts. BP was 162/67 and HR was 80. I re-started the pt. on a Cardizem gtt last night for tachycardia and HTN. Pts. CXR showed bilateral pleural effusions last night and pt. received several doses of IVP lasix which seemed to help respiratory status. Alerted at 00:16 that pt. was now refusing to wear BiPAP. Pt. was now on 4L via NC w/SpO2 of 91%. One time dose of 20 mg IVP lasix ordered. Pts. renal function continued to improve slightly w/GFR of 39, up from 36 yesterday as well as creatinine of 1.28, down from 1.39 yesterday. Will continue to monitor f/u labs and pt. closely.
[2018-09-26 05:05] LABS: Platelet Estimate Normal (Normal); Reactive Lymphocytes Present (Not Present)
[2018-09-26] MEDS ORDERED: Potassium Chloride 20 MEQ, Lidocaine 1% 2 ML in D5% in Water 250 ML IVPB ONE (05:53)
[2018-09-26] MEDS: *HR* Heparin 5,000 UNIT/ML VIAL SQ SCH ×3 (05:57→21:11)
[2018-09-26] MEDS ORDERED: Magnesium Sulfate 4 GM in 0.9 % Sodium Chloride 100 ML IVPB ONE (07:10)
[2018-09-26] MEDS: Insulin LISPRO 300 UNITS/3 ML VIAL SQ SCH ×4 (07:18→21:21)
[2018-09-26] MEDS: Diltiazem CD (24hr) 240 MG CAPSULE PO SCH (08:20)
[2018-09-26] MEDS: PERPHENAZINE PO SCH ×2 (08:23→21:11)
[2018-09-26] MEDS: AMITRIPTYLINE HCL PO SCH ×2 (08:23→21:11)
--- NOTE | 2018-09-26 08:35 | Urology Progress Note ---
<Sary Beaver N - Last Filed: 09/26/18 08:32> Date of Encounter: 09/26/18 Time of Encounter: 07:50 - Assessment and Plan (1) Right ureteral stone Current Visit: Yes Status: Acute Assessment and plan: Patient is an 87-year-old female who presents 3 days postoperatively from cystoscopy, right retrograde ureteral pyelography with intraoperative interpretation of radiographic images by surgeon in real time to facilitate procedure, right double-J stent placement. Discussed postoperative expectations with indwelling ureteral stent. Patient is aware she will require a staged stone extraction procedure after the urinary tract infection is cleared. (2) UTI (urinary tract infection) Current Visit: Yes Status: Acute Assessment and plan: Patient is an 87-year-old female who presents with a right ureteral stone, indwe lling ureteral stent and Escherichia coli urinary tract infection. Vital signs are stable. Patient is febrile with a temperature of 100.0. Her blood cell count is trending down. Creatinine is improving. Patient is receiving IV Rocephin. Blood cultures are pending. Patient requesting a timeline for discharge, and I advised her against discharge until she is at least 24 hours afebrile. Recommend an additional 10 days of oral antibiotics after discharge. Qualifiers: Urinary tract infection type: acute pyelonephritis Qualified Code(s): N10 - Acute pyelonephritis Progress Note Subjective: no new complaints Narrative: POD #3. Patient seen and examined sitting upright in bed in no apparent distress. Patient is tolerating normal diet without nausea or vomiting. Patient has indwelling catheter that is draining transparent christianne urine. Patient denies fever or chills. Patient denies flank pain. Objective Initial Vital Signs Temp Pulse Resp BP Pulse Ox 102.6 F H 114 26 156/75 96 09/23/18 01:24 09/23/18 01:24 09/23/18 01:24 09/23/18 01:24 09/23/18 01:24 - General physical appearance Present: well developed, no distress, no pain - Respiratory Present: normal expansion, normal respiratory effort - Abdomen Present: soft, non tender - Genitourinary Urine Appearance: Present: Clear, Hematuria - Integumentary Present: no rash, no abnormal pigmentation - Musculoskeletal Present: normal posture - Psychiatric Present: oriented to time, oriented to person, oriented to place, speech is normal, memory intact - Labs 09/26/18 02:54 09/26/18 02:54 Diabetes panel 09/26/18 Range/Units 02:54 Sodium 136 (136-145) mEq/L Potassium 2.7 L (3.5-5.1) mEq/L Chloride 98 (98-107) mEq/L Carbon Dioxide 27 (23-29) mEq/L BUN 32 H (8-23) mg/dL Creatinine 1.28 H (0.60-1.20) mg/dL Glucose 109 H (70-105) mg/dL Calcium 8.5 L (8.6-10.3) mg/dL Calcium panel 09/26/18 Range/Units 02:54 Calcium 8.5 L (8.6-10.3) mg/dL Pituitary panel 09/26/18 Range/Units 02:54 Sodium 136 (136-145) mEq/L Potassium 2.7 L (3.5-5.1) mEq/L Chloride 98 (98-107) mEq/L Carbon Dioxide 27 (23-29) mEq/L BUN 32 H (8-23) mg/dL Creatinine 1.28 H (0.60-1.20) mg/dL Glucose 109 H (70-105) mg/dL Calcium 8.5 L (8.6-10.3) mg/dL Adrenal panel 09/26/18 Range/Units 02:54 Sodium 136 (136-145) mEq/L Potassium 2.7 L (3.5-5.1) mEq/L Chloride 98 (98-107) mEq/L Carbon Dioxide 27 (23-29) mEq/L BUN 32 H (8-23) mg/dL Creatinine 1.28 H (0.60-1.20) mg/dL Glucose 109 H (70-105) mg/dL Calcium 8.5 L (8.6-10.3) mg/dL Consult Discharge Plan - Plan Referrals: Moreno Zhang DO [Primary Care Provider] - 10/07/18 9:30 am (Please follow up as schedule....) <Elvis Arvizu - Last Filed: 09/26/18 13:53> Date of Encounter: 09/26/18 - Assessment and Plan (1) Right ureteral stone Current Visit: Yes Status: Acute Assessment and plan: Patient seen and examined independently. I am in agreement with the assessment and plan as outlined by our Urologic Surgery Department Physician Char Filter Tank Tender, Sd. Objective Initial Vital Signs Temp Pulse Resp BP Pulse Ox 102.6 F H 114 26 156/75 96 09/23/18 01:24 09/23/18 01:24 09/23/18 01:24 09/23/18 01:24 09/23/18 01:24 - Labs 09/26/18 02:54 09/26/18 11:51 Diabetes panel 09/26/18 09/26/18 Range/Units 02:54 11:51 Sodium 136 (136-145) mEq/L Potassium 2.7 L 3.6 D (3.5-5.1) mEq/L Chloride 98 (98-107) mEq/L Carbon Dioxide 27 (23-29) mEq/L BUN 32 H (8-23) mg/dL Creatinine 1.28 H (0.60-1.20) mg/dL Glucose 109 H (70-105) mg/dL Calcium 8.5 L (8.6-10.3) mg/dL Calcium panel 09/26/18 Range/Units 02:54 Calcium 8.5 L (8.6-10.3) mg/dL Pituitary panel 09/26/18 09/26/18 Range/Units 02:54 11:51 Sodium 136 (136-145) mEq/L Potassium 2.7 L 3.6 D (3.5-5.1) mEq/L Chloride 98 (98-107) mEq/L Carbon Dioxide 27 (23-29) mEq/L BUN 32 H (8-23) mg/dL Creatinine 1.28 H (0.60-1.20) mg/dL Glucose 109 H (70-105) mg/dL Calcium 8.5 L (8.6-10.3) mg/dL Adrenal panel 09/26/18 09/26/18 Range/Units 02:54 11:51 Sodium 136 (136-145) mEq/L Potassium 2.7 L 3.6 D (3.5-5.1) mEq/L Chloride 98 (98-107) mEq/L Carbon Dioxide 27 (23-29) mEq/L BUN 32 H (8-23) mg/dL Creatinine 1.28 H (0.60-1.20) mg/dL Glucose 109 H (70-105) mg/dL Calcium 8.5 L (8.6-10.3) mg/dL
--- NOTE | 2018-09-26 08:49 | Internal Med Progress Note ---
Hospitalist Progress Note - Encounter Date of Encounter: 09/26/18 Time of Encounter: 08:48 - Subjective Interval History: Patient seen and examined at bedside. Patient states that she feels about the same as yesterday. She states she is urinating frequently. She states she is having difficulty resting at night due to frequent interruptions. She denies fever, chills, chest pain, shortness of breath, palpitations. Patient is anxious to go home - Exam Vitals: Temp Pulse Resp BP Pulse Ox 100.0 F H 89 18 182/83 91 09/26/18 07:09 09/26/18 07:09 09/26/18 07:09 09/26/18 07:09 09/26/18 07:09 Exam: General: Alert and oriented x3. No acute distress, sitting up in bed HEENT: Mucous membranes moist Cardiovascular: Irregular rhythm, normal S1 & S2, no rubs, murmurs or gallops. Lungs: Bilateral crackles have resolved, lungs clear to auscultation, no rales, rhonchi, wheezes. No respiratory distress Abdomen: Soft, nontender, nondistended. Normoactive bowel sounds Extremities: No deformity or clubbing. Neurological: Cranial nerves II through XII intact, no focal deficits - Assessment and Plan (1) Acute respiratory failure with hypoxia Current Visit: Yes Status: Acute Assessment and Plan: Patient had been off oxygen yesterday however overnight she desatted and is back on 4 L nasal cannula. Likely due to pulmonary edema which continues to improve with diuresis, lung sounds much better today. Wean oxygen as tolerated. Will qualify for patient for home O2 (2) Heart failure Current Visit: Yes Status: Acute Assessment and Plan: Appears improved today. Patient has had significant diuresis with IV Lasix, she is nearly net neutral on her fluid status for her entire stay. We will restart her home by mouth Lasix. (3) Sepsis Current Visit: Yes Status: Resolved Assessment and Plan: Sepsis secondary to pyelonephritis and infected kidney stone. Blood cultures positive for Escherichia coli, sensitive to Rocephin. Sepsis appears resolved at this time, heart rate in normal range. Leukocytosis improved today, she was noted to have a temperature of 100.0 Fahrenheit however clinically patient feels better. Continue antibiotics for UTI for a total of 10 days post discharge per urology recommendations. (4) Calculus of kidney Current Visit: Yes Status: Acute Assessment and Plan: Postop day 3 status post stent placement for stone in the setting of UTI. Seems to be recovering well, minimal pain at this time. Urology following and patient will likely need stone extraction after complete resolution of her UTI. (5) Acute kidney injury Current Visit: Yes Status: Acute Assessment and Plan: Likely acute kidney injury on CKD stage III, previous records revealed that patient's GFR was line is likely 40-50. Creatinine continues to improve with treatment of UTI and ureteral stent placement, as well as diuresis in the setting of pulmonary edema. Good urine output, encourage oral fluid intake. Continue to monitor renal function in the setting of diuretic use (6) UTI (urinary tract infection) Current Visit: Yes Status: Acute Assessment and Plan: Patient had evidence of UTI in the setting of kidney stone, likely resulting in pyelonephritis with bacteremia. Patient is postop day 3 status post cystoscopy and stent placement as discussed above. Seems to be recovering well from her infection. Continue ceftriaxone while admitted. Urine culture shows robles sensitivity (7) Bacteremia Current Visit: Yes Status: Acute Assessment and Plan: Patient has pansensitive Escherichia coli, source likely urinary tract. Clinically improving. Repeat blood cultures no growth to date. Continue ceftriaxone (8) Elevated troponin Current Visit: Yes Status: Acute Assessment and Plan: Troponins peaked and are trending down. Chest pain-free at this time. Patient evaluated by cardiology who felt this is not consistent with ACS, heparin drip was discontinued. Cardiology has signed off. Continue monitor for chest pain (9) PSVT (paroxysmal supraventricular tachycardia) Current Visit: Yes Status: Acute Assessment and Plan: Heart rate under control at this time. She remains on the Cardizem drip at this time however given that her heart rate is in the 80s and instructed in her stooling this off, have increased her oral long-acting Cardizem. We will follow up with EP as an outpatient. Continue cardiac telemetry. (10) Hypokalemia Current Visit: Yes Status: Acute Assessment and Plan: Likely due to diuretic use, potassium 2.7 this morning. Could be contributing to patient's fluctuation in heart rate. We will replace with 40 mEq by mouth 3 times a day for 3 doses. Recheck in the morning. (11) Hypomagnesemia Current Visit: Yes Status: Acute Assessment and Plan: 1.4 this morning. Likely due to Lasix. Replace 4 g IV today (12) DVT prophylaxis Current Visit: Yes Status: Acute Assessment and Plan: Heparin 5000 units subcutaneous every 8 hours - Time Spent with Patient Total time spent is greater than 50% in coordination of care (as documented) at patient's floor/unit and/or counseling patient: Internal Medicine: Result - Labs CBC & Chem 7: 09/26/18 02:54 09/26/18 02:54 Labs: Short CBC 09/26/18 Range/Units 02:54 WBC 12.6 H (4.3-11.1) K/mcL Hgb 8.7 L (11.5-15.4) g/dL Hct 27.1 L (35.3-44.9) % Plt Count 357 (140-400) K/mcL Neutrophils # 9.8 H (1.6-8.9) K/mcL BMP 09/26/18 02:54 Sodium 136 Potassium 2.7 L Chloride 98 Carbon Dioxide 27 BUN 32 H Creatinine 1.28 H Glucose 109 H Calcium 8.5 L - ABG Interpretation ABG results: ABG ABG pH 7.43 pH Units (7.32-7.45) 09/25/18 05:48 ABG pCO2 37 mmHg (35-45) 09/25/18 05:48 ABG pO2 59 mmHg (85-104) L 09/25/18 05:48 ABG O2 Saturation 91 % (95-98) L 09/25/18 05:48 PT/INR, D-dimer PT 12.5 Seconds (9.4-12.1) H 09/23/18 08:27 Consult Discharge Plan - Plan Referrals: Moreno Zhang DO [Primary Care Provider] - 10/07/18 9:30 am (Please follow up as schedule....) (2) Heart failure Qualifiers: Heart failure type: diastolic Heart failure chronicity: acute on chronic Qualified Code(s): I50.33 - Acute on chronic diastolic (congestive) heart failure (3) Sepsis Qualifiers: Sepsis type: Escherichia coli Qualified Code(s): A41.51 - Sepsis due to Escherichia coli [E. coli] (6) UTI (urinary tract infection) Qualifiers: Urinary tract infection type: acute pyelonephritis Qualified Code(s): N10 - Acute pyelonephritis
[2018-09-26] MEDS: Furosemide 40 MG TABLET PO SCH ×2 (10:30→17:00)
[2018-09-26] MEDS: cefTRIAXone 2,000 MG in Water for inj. (sterile) 20 ML 20 ML IVP SCH (18:32)
[2018-09-27] MEDS: Levalbuterol Neb 1.25 MG/3 ML IH SCH ×4 (04:15→22:42)
[2018-09-27] MEDS: *HR* Heparin 5,000 UNIT/ML VIAL SQ SCH ×3 (06:18→21:54)
[2018-09-27 06:29] LABS: Calcium 8.5 mg/dL (8.6-10.3); Magnesium 1.8 mg/dL (1.6-2.6); Potassium 3.7 mEq/L (3.5-5.1)
[2018-09-27 06:58] LABS: Basophils % 0.2 %; Eosinophils # 0.3 K/mcL (0.0-0.6); Eosinophils % 2.1 %; Hematocrit 27.6 % (35.3-44.9); Hemoglobin 8.9 g/dL (11.5-15.4); Immature Granulocytes % 1.7 % (0-4); Lymphocytes # 1.4 K/mcL (0.6-4.6); Lymphocytes % 8.9 %; Mean Corpuscular HGB Conc 32.2 g/dL (31.6-35.5); Mean Corpuscular Hemoglobin 26.2 pg (28.0-33.3); Mean Corpuscular Volume 81.2 fL (83.0-100.0); Mean Platelet Volume 10.5 fL (9.4-12.4); Monocytes # 1.3 K/mcL (0.0-1.3); Monocytes % 7.9 %; Neutrophils # 12.7 K/mcL (1.6-8.9); Platelet Count 374 K/mcL (140-400); Red Cell Distribution Width 13.6 % (11.5-14.5); Segmented Neutrophils % 79.2 %
[2018-09-27] MEDS: Insulin LISPRO 300 UNITS/3 ML VIAL SQ SCH ×4 (07:24→21:45)
[2018-09-27] MEDS: Diltiazem CD (24hr) 240 MG CAPSULE PO SCH (08:29)
[2018-09-27] MEDS: Furosemide 40 MG TABLET PO SCH ×2 (08:29→16:56)
[2018-09-27] MEDS: PERPHENAZINE PO SCH ×2 (08:30→21:53)
[2018-09-27] MEDS: AMITRIPTYLINE HCL PO SCH ×2 (08:30→21:53)
[2018-09-27] MEDS ORDERED: *HR* HYDROcodone/Acet 7.5/325 mg TABLET PO PRN (12:54)
--- NOTE | 2018-09-27 13:53 | Internal Med Progress Note ---
Hospitalist Progress Note - Encounter Date of Encounter: 09/27/18 Time of Encounter: 13:51 - Subjective Interval History: Patient seen and examined at bedside. Patient states that she feels ok today. She states she is having difficulty sleeping at night due to frequent interruptions. She denies fever, chills, chest pain, shortness of breath, palpitations. - Exam Vitals: Temp Pulse Resp BP Pulse Ox 98.4 F 83 19 120/66 97 09/27/18 12:10 09/27/18 12:10 09/27/18 12:10 09/27/18 12:10 09/27/18 12:10 Exam: General: Alert and oriented x3. No acute distress, sitting up in bed HEENT: Mucous membranes moist Cardiovascular: Irregular rhythm, normal S1 & S2, no rubs, murmurs or gallops. Lungs: lungs clear to auscultation, no rales, rhonchi, wheezes. No respiratory distress Abdomen: Soft, nontender, nondistended. Normoactive bowel sounds Extremities: No deformity or clubbing. - Assessment and Plan (1) Acute respiratory failure with hypoxia Current Visit: Yes Status: Acute Assessment and Plan: Has been on oxygen throughout her stay. She is now on 3 L but is satting at 97% we will attempt to wean off. (2) Heart failure Current Visit: Yes Status: Acute Assessment and Plan: Appears improved today. Still requiring oxygen but at this point I think we will be able to wean her off. Continue oral Lasix. (3) Sepsis Current Visit: Yes Status: Resolved Assessment and Plan: Sepsis secondary to pyelonephritis and infected kidney stone. Blood cultures positive for Escherichia coli, sensitive to Rocephin. Sepsis appears resolved at this time, heart rate in normal range. Slightly worse today and temperature 99.9 however clinically the patient feels much improved and repeat blood cultures are negative. Continue antibiotics for UTI for a total of 10 days post discharge per urology recommendations. (4) Calculus of kidney Current Visit: Yes Status: Acute Assessment and Plan: Postop day 4 status post stent placement for stone in the setting of UTI. Pain- free at this time. Urology following and patient will likely need stone extraction after complete resolution of her UTI. (5) Acute kidney injury Current Visit: Yes Status: Acute Assessment and Plan: Resolved. Likely acute kidney injury on CKD stage III, previous records revealed that patient's GFR was line is likely 40-50. Creatinine is 1.09, GFR 47 which is patient's baseline. Good urine output, encourage oral fluid intake. Continue to monitor renal function in the setting of diuretic use (6) UTI (urinary tract infection) Current Visit: Yes Status: Acute Assessment and Plan: Patient had evidence of UTI in the setting of kidney stone, likely resulting in pyelonephritis with bacteremia. Patient is postop day 4 status post cystoscopy and stent placement as discussed above. Recovering well from her infection. Continue ceftriaxone while admitted. Urine culture shows robles sensitivity (7) Bacteremia Current Visit: Yes Status: Resolved Assessment and Plan: Patient has pansensitive Escherichia coli, source urinary tract. Clinically improving. Repeat blood cultures no growth to date. Continue ceftriaxone (8) Elevated troponin Current Visit: Yes Status: Resolved Assessment and Plan: Troponins peaked and are trending down. Chest pain-free at this time. Patient evaluated by cardiology who has signed off. Continue monitor for chest pain (9) PSVT (paroxysmal supraventricular tachycardia) Current Visit: Yes Status: Acute Assessment and Plan: Cardizem drip has been discontinued and patient is only on oral medication and her heart rate is under good control. We will follow up with EP as an outpa tient. Continue cardiac telemetry. (10) Hypokalemia Current Visit: Yes Status: Resolved Assessment and Plan: Resolved, potassium normal. Continue to monitor. (11) Hypomagnesemia Current Visit: Yes Status: Resolved (12) DVT prophylaxis Current Visit: Yes Status: Acute Assessment and Plan: Heparin 5000 units subcutaneous every 8 hours - Time Spent with Patient Total time spent is greater than 50% in coordination of care (as documented) at patient's floor/unit and/or counseling patient: Internal Medicine: Result - Labs CBC & Chem 7: 09/27/18 05:52 09/27/18 05:52 Labs: Short CBC 09/27/18 Range/Units 05:52 WBC 16.1 H (4.3-11.1) K/mcL Hgb 8.9 L (11.5-15.4) g/dL Hct 27.6 L (35.3-44.9) % Plt Count 374 (140-400) K/mcL Neutrophils # 12.7 H (1.6-8.9) K/mcL BMP 09/27/18 05:52 Sodium 138 Potassium 3.7 Chloride 102 Carbon Dioxide 25 BUN 24 H Creatinine 1.09 Glucose 134 H Calcium 8.5 L - ABG Interpretation ABG results: ABG ABG pH 7.43 pH Units (7.32-7.45) 09/25/18 05:48 ABG pCO2 37 mmHg (35-45) 09/25/18 05:48 ABG pO2 59 mmHg (85-104) L 09/25/18 05:48 ABG O2 Saturation 91 % (95-98) L 09/25/18 05:48 PT/INR, D-dimer PT 12.5 Seconds (9.4-12.1) H 09/23/18 08:27 Consult Discharge Plan - Plan Referrals: Moreno Zhang DO [Primary Care Provider] - 10/07/18 9:30 am (Please follow up as schedule....) (2) Heart failure Qualifiers: Heart failure type: diastolic Heart failure chronicity: acute on chronic Qualified Code(s): I50.33 - Acute on chronic diastolic (congestive) heart failure (3) Sepsis Qualifiers: Sepsis type: Escherichia coli Qualified Code(s): A41.51 - Sepsis due to Escherichia coli [E. coli] (6) UTI (urinary tract infection) Qualifiers: Urinary tract infection type: acute pyelonephritis Qualified Code(s): N10 - Acute pyelonephritis
[2018-09-27] MEDS: cefTRIAXone 2,000 MG in Water for inj. (sterile) 20 ML 20 ML IVP SCH (16:56)
[2018-09-27] MEDS: Melatonin 3 MG TABLET PO SCH (21:53)
[2018-09-28] MEDS: Levalbuterol Neb 1.25 MG/3 ML IH SCH ×4 (04:06→22:27)
[2018-09-28 05:25] LABS: Basophils % 0.2 %; Eosinophils # 0.5 K/mcL (0.0-0.6); Eosinophils % 3.2 %; Hematocrit 26.7 % (35.3-44.9); Hemoglobin 8.3 g/dL (11.5-15.4); Immature Granulocytes % 2.7 % (0-4); Lymphocytes # 1.7 K/mcL (0.6-4.6); Lymphocytes % 10.8 %; Mean Corpuscular HGB Conc 31.1 g/dL (31.6-35.5); Mean Corpuscular Hemoglobin 25.5 pg (28.0-33.3); Mean Corpuscular Volume 81.9 fL (83.0-100.0); Mean Platelet Volume 10.1 fL (9.4-12.4); Monocytes # 1.2 K/mcL (0.0-1.3); Monocytes % 7.6 %; Platelet Count 390 K/mcL (140-400); Red Blood Count 3.26 M/mcL (3.82-4.97); Red Cell Distribution Width 13.7 % (11.5-14.5); Segmented Neutrophils % 75.5 %
[2018-09-28] MEDS: *HR* Heparin 5,000 UNIT/ML VIAL SQ SCH ×3 (05:35→21:18)
[2018-09-28 05:44] LABS: Calcium 8.5 mg/dL (8.6-10.3); Magnesium 1.6 mg/dL (1.6-2.6); Potassium 3.2 mEq/L (3.5-5.1)
[2018-09-28] MEDS: Insulin LISPRO 300 UNITS/3 ML VIAL SQ SCH ×4 (08:55→21:13)
[2018-09-28] MEDS: Diltiazem CD (24hr) 240 MG CAPSULE PO SCH (08:57)
[2018-09-28] MEDS: Furosemide 40 MG TABLET PO SCH ×2 (08:58→17:26)
[2018-09-28] MEDS: AMITRIPTYLINE HCL PO SCH ×2 (08:59→21:20)
[2018-09-28] MEDS: PERPHENAZINE PO SCH ×2 (08:59→21:20)
[2018-09-28] MEDS ORDERED: *HR* OxyCODONE/APAP 7.5/325 TABLET PO PRN (13:29)
--- NOTE | 2018-09-28 13:49 | Internal Med Progress Note ---
Hospitalist Progress Note - Encounter Date of Encounter: 09/28/18 Time of Encounter: 13:47 - Subjective Interval History: Patient seen and examined at bedside. Patient states that she feels better today. She states she slept better last night. She denies fever, chills, chest pain, shortness of breath, palpitations. - Exam Vitals: Temp Pulse Resp BP Pulse Ox 98.8 F 77 18 153/74 94 09/28/18 11:33 09/28/18 11:33 09/28/18 11:33 09/28/18 11:33 09/28/18 11:33 Exam: General: Alert and oriented x3. No acute distress, sitting up in bed HEENT: Mucous membranes moist Cardiovascular: Irregular rhythm, normal S1 & S2, no rubs, murmurs or gallops. Lungs: lungs clear to auscultation, no rales, rhonchi, wheezes. No respiratory distress Abdomen: Soft, nontender, nondistended. Normoactive bowel sounds Extremities: No deformity or clubbing. - Assessment and Plan (1) Acute respiratory failure with hypoxia Current Visit: Yes Status: Acute Assessment and Plan: Has been on and off oxygen throughout her stay. She is now on 3 L but is satting at 94% we will attempt to wean off. (2) Heart failure Current Visit: Yes Status: Acute Assessment and Plan: Appears stable today. Still requiring oxygen. Continue oral Lasix. (3) Sepsis Current Visit: Yes Status: Resolved Assessment and Plan: Sepsis secondary to pyelonephritis and infected kidney stone. Blood cultures positive for Escherichia coli, sensitive to Rocephin. Sepsis appears resolved at this time, heart rate in normal range. Leukocytosis improved today and temperature has been normal. Continue antibiotics for UTI for a total of 10 days post discharge per urology recommendations. (4) Calculus of kidney Current Visit: Yes Status: Acute Assessment and Plan: Postop day 5 status post stent placement for stone in the setting of UTI. Pain- free at this time. Urology following and patient will likely need stone extraction after complete resolution of her UTI. (5) Acute kidney injury Current Visit: Yes Status: Acute Assessment and Plan: Resolved. at baseline CKD stage III, previous records revealed that patient's GFR was line is likely 40-50. Creatinine is 1.13, GFR 46 which is patient's baseline. Good urine output, encourage oral fluid intake. Continue to monitor renal function in the setting of diuretic use (6) UTI (urinary tract infection) Current Visit: Yes Status: Acute Assessment and Plan: Patient had evidence of UTI in the setting of kidney stone, likely resulting in pyelonephritis with bacteremia. Patient is postop day 5 status post cystoscopy and stent placement as discussed above. Recovering well from her infection. Continue ceftriaxone while admitted. Urine culture shows robles sensitivity (7) Bacteremia Current Visit: Yes Status: Resolved Assessment and Plan: Patient has pansensitive Escherichia coli, source urinary tract. Clinically improving. Repeat blood cultures negative. Continue ceftriaxone (8) Elevated troponin Current Visit: Yes Status: Resolved Assessment and Plan: Troponins peaked and are trending down. Chest pain-free at this time. Patient evaluated by cardiology who has signed off. Continue monitor for chest pain (9) PSVT (paroxysmal supraventricular tachycardia) Current Visit: Yes Status: Acute Assessment and Plan: Cardizem drip has been discontinued for 2 days now and patient is only on oral medication and her heart rate is under good control. We will follow up with EP as an outpatient. Continue cardiac telemetry. (10) Hypokalemia Current Visit: Yes Status: Resolved Assessment and Plan: Potassium back down to 3.2 today. Will replete. (11) Hypomagnesemia Current Visit: Yes Status: Resolved Assessment and Plan: 1.6 this morning. Borderline low, we will give 2 g. (12) DVT prophylaxis Current Visit: Yes Status: Acute Assessment and Plan: Heparin 5000 units subcutaneous every 8 hours - Time Spent with Patient Total time spent is greater than 50% in coordination of care (as documented) at patient's floor/unit and/or counseling patient: Internal Medicine: Result - Labs CBC & Chem 7: 09/28/18 04:22 09/28/18 04:22 Labs: Short CBC 09/28/18 Range/Units 04:22 WBC 15.9 H (4.3-11.1) K/mcL Hgb 8.3 L (11.5-15.4) g/dL Hct 26.7 L (35.3-44.9) % Plt Count 390 (140-400) K/mcL Neutrophils # 12.0 H (1.6-8.9) K/mcL BMP 09/28/18 04:22 Sodium 139 Potassium 3.2 L Chloride 101 Carbon Dioxide 28 BUN 19 Creatinine 1.13 Glucose 111 H Calcium 8.5 L - ABG Interpretation ABG results: ABG ABG pH 7.43 pH Units (7.32-7.45) 09/25/18 05:48 ABG pCO2 37 mmHg (35-45) 09/25/18 05:48 ABG pO2 59 mmHg (85-104) L 09/25/18 05:48 ABG O2 Saturation 91 % (95-98) L 09/25/18 05:48 PT/INR, D-dimer PT 12.5 Seconds (9.4-12.1) H 09/23/18 08:27 Consult Discharge Plan - Plan Referrals: Moreno Zhang DO [Primary Care Provider] - 10/07/18 9:30 am (Please follow up as schedule....) (2) Heart failure Qualifiers: Heart failure type: diastolic Heart failure chronicity: acute on chronic Qualified Code(s): I50.33 - Acute on chronic diastolic (congestive) heart failure (3) Sepsis Qualifiers: Sepsis type: Escherichia coli Qualified Code(s): A41.51 - Sepsis due to Escherichia coli [E. coli] (6) UTI (urinary tract infection) Qualifiers: Urinary tract infection type: acute pyelonephritis Qualified Code(s): N10 - Acute pyelonephritis
[2018-09-28] MEDS: cefTRIAXone 2,000 MG in Water for inj. (sterile) 20 ML 20 ML IVP SCH (17:26)
[2018-09-28] MEDS: Melatonin 3 MG TABLET PO SCH (21:18)
[2018-09-29] MEDS ORDERED: *HR* Metoprolol 5 MG/5 ML VIAL IVP ONE (02:23)
--- NOTE | 2018-09-29 02:56 | Event Note ---
Date of Encounter: 09/29/18 Time of Encounter: 01:31 Alerted by pts. nurse CALLI Sims that the pt. was experiencing transient PVCs which were becoming more frequent. EKG ordered which showed NSR w/supraventricu;ar premature complexes. HR was 73. BP 144/62. 2.5 mg IVP metoprolol ordered. Nurse instructed to continue monitoring pt. closely and notify me immediately of any adverse changes or continuing PVCs.
[2018-09-29] MEDS: Levalbuterol Neb 1.25 MG/3 ML IH SCH ×3 (03:57→15:34)
[2018-09-29] MEDS: *HR* Heparin 5,000 UNIT/ML VIAL SQ SCH ×2 (05:46→14:27)
[2018-09-29 05:59] LABS: Basophils % 0.2 %; Eosinophils # 0.6 K/mcL (0.0-0.6); Eosinophils % 3.9 %; Hematocrit 27.2 % (35.3-44.9); Hemoglobin 8.3 g/dL (11.5-15.4); Immature Granulocytes % 2.4 % (0-4); Lymphocytes # 1.8 K/mcL (0.6-4.6); Lymphocytes % 11.5 %; Mean Corpuscular HGB Conc 30.5 g/dL (31.6-35.5); Mean Corpuscular Hemoglobin 25.4 pg (28.0-33.3); Mean Corpuscular Volume 83.2 fL (83.0-100.0); Mean Platelet Volume 9.3 fL (9.4-12.4); Monocytes # 1.3 K/mcL (0.0-1.3); Monocytes % 8.7 %; Neutrophils # 11.2 K/mcL (1.6-8.9); Platelet Count 394 K/mcL (140-400); Red Blood Count 3.27 M/mcL (3.82-4.97); Red Cell Distribution Width 13.8 % (11.5-14.5); Segmented Neutrophils % 73.3 %
[2018-09-29 06:21] LABS: Calcium 8.7 mg/dL (8.6-10.3); Magnesium 1.7 mg/dL (1.6-2.6); Potassium 3.9 mEq/L (3.5-5.1)
--- NOTE | 2018-09-29 08:23 | Urology Progress Note ---
Date of Encounter: 09/29/18 Time of Encounter: 08:00 - Assessment and Plan (1) Right ureteral stone Current Visit: Yes Status: Acute Assessment and plan: Patient is an 87-year-old female who presents 6 days postoperatively from c ystoscopy, right retrograde ureteral pyelography with intraoperative interpretation of radiographic images by surgeon in real time to facilitate procedure, right double-J stent placement. Patient is recovering well with no new concerns. Patient is aware she will require a staged stone extraction p rocedure. Patient will be discharged to a rehabilitation facility. Patient follow-up in our office within 1-[address] Arvizu to discuss and plan stone extraction procedure. (2) UTI (urinary tract infection) Current Visit: Yes Status: Acute Assessment and plan: Patient is an 87-year-old female who presents with an impacted right ureteral stone and Escherichia coli urinary tract infection. Vital signs are stable and afebrile. White blood cell count remains elevated at 15.3 but is trending down. Creatinine improved to 1.13. Patient is receiving IV Rocephin. Recommend an additional 10 days of susceptible oral antibiotics with discharge. Qualifiers: Urinary tract infection type: acute pyelonephritis Qualified Code(s): N10 - Acute pyelonephritis Progress Note Subjective: no new complaints, feels better Narrative: POD #6. Patient seen and examined sitting upright in bed eating breakfast in no apparent distress. Patient is tolerating normal diet without nausea or vomiting. Patient is voiding without difficulty. Patient denies fever, chills, flank pain, gross hematuria. Objective Initial Vital Signs Temp Pulse Resp BP Pulse Ox 102.6 F H 114 26 156/75 96 09/23/18 01:24 09/23/18 01:24 09/23/18 01:24 09/23/18 01:24 09/23/18 01:24 - General physical appearance Present: no distress, no pain - Respiratory Present: normal expansion, normal respiratory effort - Abdomen Present: soft, non tender - Integumentary Present: no rash, no abnormal pigmentation - Musculoskeletal Present: normal posture - Psychiatric Present: oriented to time, oriented to person, oriented to place, speech is normal, memory intact - Labs 09/29/18 05:45 09/29/18 05:45 Diabetes panel 09/29/18 Range/Units 05:45 Sodium 138 (136-145) mEq/L Potassium 3.9 (3.5-5.1) mEq/L Chloride 103 (98-107) mEq/L Carbon Dioxide 29 (23-29) mEq/L BUN 16 (8-23) mg/dL Creatinine 1.13 (0.60-1.20) mg/dL Glucose 103 (70-105) mg/dL Calcium 8.7 (8.6-10.3) mg/dL Calcium panel 09/29/18 Range/Units 05:45 Calcium 8.7 (8.6-10.3) mg/dL Pituitary panel 09/29/18 Range/Units 05:45 Sodium 138 (136-145) mEq/L Potassium 3.9 (3.5-5.1) mEq/L Chloride 103 (98-107) mEq/L Carbon Dioxide 29 (23-29) mEq/L BUN 16 (8-23) mg/dL Creatinine 1.13 (0.60-1.20) mg/dL Glucose 103 (70-105) mg/dL Calcium 8.7 (8.6-10.3) mg/dL Adrenal panel 09/29/18 Range/Units 05:45 Sodium 138 (136-145) mEq/L Potassium 3.9 (3.5-5.1) mEq/L Chloride 103 (98-107) mEq/L Carbon Dioxide 29 (23-29) mEq/L BUN 16 (8-23) mg/dL Creatinine 1.13 (0.60-1.20) mg/dL Glucose 103 (70-105) mg/dL Calcium 8.7 (8.6-10.3) mg/dL Consult Discharge Plan - Plan Referrals: Moreno Zhang DO [Primary Care Provider] - 10/07/18 9:30 am (Please follow up as schedule....)
[2018-09-29] MEDS: Diltiazem CD (24hr) 240 MG CAPSULE PO SCH (08:46)
[2018-09-29] MEDS: Insulin LISPRO 300 UNITS/3 ML VIAL SQ SCH ×2 (08:46→11:49)
[2018-09-29] MEDS: Furosemide 40 MG TABLET PO SCH (08:47)
[2018-09-29] MEDS: AMITRIPTYLINE HCL PO SCH (08:50)
[2018-09-29] MEDS: PERPHENAZINE PO SCH (08:50)
--- NOTE | 2018-09-29 09:11 | Discharge Summary ---
- NOTES TO OUTPATIENT PROVIDER Notes to Outpatient Provider: Patient had UTI due to renal stone and bacteremia. Culture showed pansensitive Escherichia coli, patient was treated with Rocephin and transition to Bactrim. Will need urology follow-up for her stomach extraction. Orders not resulted at time of discharge: Pending orders 09/24/18 08:06 Culture,Blood [BC] Stat 09/25/18 03:47 EKG [ECG 12 lead ECG] [ECG] Stat 09/29/18 01:47 ECG 12 lead ECG [ECG] Routine Date of Encounter: 09/29/18 Time of Encounter: 09:09 - Discharge Diagnosis (1) Acute respiratory failure with hypoxia Priority: Primary Status: Acute (2) Heart failure Priority: Primary Status: Acute Qualifiers: Heart failure type: diastolic Heart failure chronicity: acute on chronic Qualified Code(s): I50.33 - Acute on chronic diastolic (congestive) heart failure (3) Sepsis Priority: Primary Status: Resolved Qualifiers: Sepsis type: Escherichia coli Qualified Code(s): A41.51 - Sepsis due to Escherichia coli [E. coli] (4) Calculus of kidney Priority: Primary Status: Acute (5) Acute kidney injury Priority: Primary Status: Acute (6) UTI (urinary tract infection) Priority: Primary Status: Acute Qualifiers: Urinary tract infection type: acute pyelonephritis Qualified Code(s): N10 - Acute pyelonephritis (7) Bacteremia Priority: Primary Status: Resolved (8) Elevated troponin Priority: Secondary Status: Resolved (9) PSVT (paroxysmal supraventricular tachycardia) Priority: Secondary Status: Acute (10) Hypokalemia Priority: Secondary Status: Resolved (11) Hypomagnesemia Priority: Secondary Status: Resolved Hospital course: Ms. Broussard is a 87 year old female with history of supraventricular tachycardia, diastolic heart failure presented with UTI in the setting of renal stone. She was noted to be bacteremic. Cultures revealed Escherichia coli. She was treated with ureteral stent placement and IV Rocephin. Her infection improved and will be discharged home on 10 more days of Bactrim. During her hospitalization she was also noted to have pulmonary edema, and likely acute exacerbation of diastolic heart failure. She received several days of IV diuresis and has been transitioned successfully to by mouth diuresis. He was evaluated by PT/OT who felt to benefit from inpatient rehabilitation. Patient was initially resistant however after discussion with the patient and family she eventually agreed. Placement is pending. Patient will be discharged to inpatient rehabilitation in stable condition. Discharge discussed with: patient, family, social work, case management - Time Spent with Patient Total time spent providing and/or coordinating discharge services: Greater than 30 minutes (40 minutes) - Discharge Medications Prescriptions: OxyCODONE/APAP 7.5/325 [Percocet 7.5/325 MG] 1 each PO TID PRN 10 Days #30 tablet PRN Reason: Pain Home Medications: Aspirin [Adult Aspirin] 81 mg PO DAILY 09/23/18 [History] Diltiazem CD (24hr) [Cardizem CD] 240 mg PO DAILY 09/23/18 [History] Ferrous Sulfate [Iron] 325 mg PO DAILY 09/23/18 [History] Furosemide [Lasix] 40 mg PO BID 09/23/18 [History] Metoprolol Succinate [Toprol Xl] 50 mg PO DAILY 09/23/18 [History] Omeprazole [PriLOSEC] 40 mg PO BID 09/23/18 [History] Perphenazine/Amitriptyline HCl [Perphen-Amitrip 4 mg-25 mg Tab] 1 tab PO BID 09/23/18 [History] Sertraline [Zoloft] 50 mg PO DAILY 09/23/18 [History] Melatonin 6 mg PO HS tablet 09/29/18 [Rx] OxyCODONE/APAP 7.5/325 [Percocet 7.5/325 MG] 1 each PO TID PRN 10 Days #30 tablet 09/29/18 [Rx] Sulfamethoxazole/Trimeth DS [Bactrim Ds] 1 each PO BID 10 Days #20 tablet 09/29/18 [Rx] Allergies/Adverse Reactions: Allergy/AdvReac Type Severity Reaction Status Date / Time No Known Allergies Allergy Verified 09/23/18 02:00 Date of admission: 09/27/18 11:48 Primary care physician: Elliott Zhang DO Consults: 09/23/18 02:57 Consult to Urology [CONS] Stat Consulting Provider: Urology Vilma Reason for Consult: Hydronephrosis, Pyleonephritis Time Notified: 02:58 Call Completed: Yes 09/23/18 07:55 Consult to Cardiology [CONS] Routine Comment: Consulting Provider: Cardiology Vilma Reason for Consult: elevated trops. SVT Call Completed: No 09/23/18 14:47 Consult to Electrophysiology (EP) [CONS] Routine Consulting Provider: Electrophysiology Vilma Reason for Consult: SVT Call Completed: Yes 09/25/18 09:59 Consult to Physical Therapy [CONS] Routine Comment: Evaluate, develop and implement POC Reason for Consult: weakness Does patient have active BEDREST order?: No Is patient medically & hemodynamically stable?: Yes OT [Consult to Occupational Therapy] [CONS] Routine Comment: Evaluate, develop and implement POC Reason for Consult: weakness Does patient have active BEDREST order?: No Is patient medically & hemodynamically stable?: Yes Discharging clinician: Bryce Osborne Anticipated date of discharge: 09/29/18 - Constitutional Vitals: Temp Pulse Resp BP Pulse Ox 98.7 F 82 16 172/70 96 09/29/18 07:28 09/29/18 07:28 09/29/18 07:28 09/29/18 07:28 09/29/18 07:28 General appearance: Present: A&O X 3, pleasant, no acute distress Exam: . - Respiratory Respiratory exam: Present: CTAB. Absent: rales, rhonchi, wheezes - Cardiovascular Cardiovascular exam: Present: RRR. Absent: gallop, rubs, systolic murmur - GI/Abdominal GI/Abdominal exam: Present: normal bowel sounds, soft. Absent: distended, tenderness - Patient Status Disposition: Transfer Inpatient Rehab Fac Condition: Fair Functional capacity at discharge: uses cane/walker Overall status at discharge: patient is progressing back to baseline - Discharge Instructions Follow Up With: Moreno Zhang DO [Primary Care Provider] - 10/07/18 9:30 am (Please follow up as schedule....) Elvis Arvizu [Partnered Physician] - (1-2 weeks) Forms: ED Satisfaction Letter, Work/School Release Additional Instructions: Please follow-up with your primary care physician within one week. Please follow-up with urology in 1-2 weeks. Please take your antibiotic until completed. Please participate with physical therapy. Please resume your home medications. Please return for any new or worsening symptoms. - Diet and Activity Activity: as per physical therapy Diet: low salt diet
--- NOTE | 2018-09-29 09:19 | Physician Discharge Referral ---
ExtendedCare Referral Info Provider in Charge after Transfer: PCP Institutional Level of Care: Skilled - Diagnosis (1) Acute respiratory failure with hypoxia Priority: Primary Status: Acute (2) Heart failure Priority: Primary Status: Acute (3) Sepsis Priority: Primary Status: Resolved (4) Calculus of kidney Priority: Primary Status: Acute (5) Acute kidney injury Priority: Primary Status: Acute (6) UTI (urinary tract infection) Priority: Primary Status: Acute (7) Bacteremia Priority: Primary Status: Resolved (8) Elevated troponin Priority: Secondary Status: Resolved (9) PSVT (paroxysmal supraventricular tachycardia) Priority: Secondary Status: Acute (10) Hypokalemia Priority: Secondary Status: Resolved (11) Hypomagnesemia Priority: Secondary Status: Resolved Prognosis: Fair Aware of Diagnosis: Patient, Family Aware of Prognosis: Patient, Family - Transfer Medications Prescriptions: OxyCODONE/APAP 7.5/325 [Percocet 7.5/325 MG] 1 each PO TID PRN 10 Days #30 tablet PRN Reason: Pain Home Medications: Aspirin [Adult Aspirin] 81 mg PO DAILY 09/23/18 [History] Diltiazem CD (24hr) [Cardizem CD] 240 mg PO DAILY 09/23/18 [History] Ferrous Sulfate [Iron] 325 mg PO DAILY 09/23/18 [History] Furosemide [Lasix] 40 mg PO BID 09/23/18 [History] Metoprolol Succinate [Toprol Xl] 50 mg PO DAILY 09/23/18 [History] Omeprazole [PriLOSEC] 40 mg PO BID 09/23/18 [History] Perphenazine/Amitriptyline HCl [Perphen-Amitrip 4 mg-25 mg Tab] 1 tab PO BID 09/23/18 [History] Sertraline [Zoloft] 50 mg PO DAILY 09/23/18 [History] Melatonin 6 mg PO HS tablet 09/29/18 [Rx] OxyCODONE/APAP 7.5/325 [Percocet 7.5/325 MG] 1 each PO TID PRN 10 Days #30 tablet 09/29/18 [Rx] Sulfamethoxazole/Trimeth DS [Bactrim Ds] 1 each PO BID 10 Days #20 tablet 09/29/18 [Rx] Allergies/Adverse Reactions: Allergy/AdvReac Type Severity Reaction Status Date / Time No Known Allergies Allergy Verified 09/23/18 02:00 - Respiratory Orders Oxygen / L per min (2, wean as tolerated) Smoking Cessation: Smoking cessation has been advised. For more information, call the [place] Tobacco Quit Line at 6-343-CWVD-NOW. - Ancillary Orders May use pressure relief devices daily prn, May go on ESAU w/family/respon republican w/meds at nurse discretion PRN - Advance Directives Code Status: Full Code - Mobility Orders Ambulate (with walker) - Rehabiliation Orders Rehab Potential: Good Rehab Orders: ROM Exercises, Evaluation for Physical Therapy, Evaluation for Occupational Therapy - Treatments Skin tear care topically daily PRN per policy, May check for fecal impaction rectally daily PRN, Fleet enema rectally every other day PRN cleansing purposes - Diet Orders No Added Salt (PRETTY), Cardiac CERTIFICATION: I certify that the transfer of the above named patient to an Extended Care Facility is necessary for the continuing treatment of the diagnosis listed. The above information is true and accurate reflection of patient's current condition. Confidential - Redisclosure prohibited without a patient's written consent.
[2018-09-29] MEDS ORDERED: Sulfamethoxazole/Trimeth DS 1 EACH TABLET PO SCH (09:30)
[2018-09-29 15:50] VITALS: BP 156/69
--- NOTE | 2018-09-30 17:27 | Electrocardiograph Report ---
[address] [place], [place] [address] Test Date: 2018-09-29 Pat Name: Jessi Broussard Department: 112 Room: 2A26 Gender: F [employer] Operator: [id number] : 1930 Requested By: [id number] Order Number: [id number] Reading MD: Cristela Blunt Measurements Intervals [place] Rate: 77 P: 40 GA: 204 QRS: -22 QRSD: 96 T: -32 QT: 376 QTc: 407 Interpretive Statements SINUS RHYTHM WITH OCCASIONAL SUPRAVENTRICULAR PREMATURE COMPLEXES INFERIOR MYOCARDIAL INFARCTION, OF INDETERMINATE AGE Electronically Signed On 09-30-2018 17:25:21 EST by Cristela Blunt
== END 2018-09-29 16:51 | DRG 853 ==
LOC: EMEROOARM 01:20 → 2ANU 01:20 → SUATTDRO 04:07 → 2ANU 05:21
PROVIDERS: ADMIT Family Medicine; ATTEND Internal Medicine